=== PATIENT | male | born 1980 ===

== ENCOUNTER 2020-03-27 05:33 | Outpatient (RCR) | payer BC ==
[~2020-03-27] VITALS: Ht 170 cm; Wt 68.0 kg
== END 2020-03-27 15:13 | disposition home or self-care (01) ==
LOC: PREOP 05:33
PROVIDERS: ATTEND Surgery
DX: Z01.818 Encounter for other preprocedural examination (principal); Z11.59 Encounter for screening for other viral diseases
CPT/HCPCS: 87635

== ENCOUNTER 2020-03-30 10:42 | Day surgery (SDC) | payer BC ==
[~2020-03-30] VITALS: Ht 170 cm; Wt 68.0 kg
[2020-03-30] MEDS ORDERED: LACTATED RINGERS 1,000 ML IV ONE (10:53)
--- NOTE | 2020-03-30 10:57 | Progress Note-Pre Operative ---
Pre-Operative Progress Note H&P Reviewed The H&P was reviewed, patient examined and no changes noted. Date Seen by Provider: Mar 30, 2020 Time Seen by Provider: 10:55 Date H&P Reviewed: Mar 30, 2020 Time H&P Reviewed: 10:55 Pre-Operative Diagnosis: rectal bleed CHEN WISDOM MD Mar 30, 2020 10:57
[2020-03-30] MEDS ORDERED: PROPOFOL INJECTION 50 ML IV ONE (10:58)
[2020-03-30] MEDS ORDERED: MIDAZOLAM 2 MG/2 ML (VERSED) VIAL ONE (10:58)
--- NOTE | 2020-03-30 10:58 | Discharge Inst-Surgical ---
D/C Lap Instructions-ARTIS Follow Up Activity as tolerated High Fiber Diet 25g or more per day Avoid Alcohol, Caffeine, Spicy [place] and Acid foods. Drink 64 fluid oz or more of fluids per day. Symptoms to Report: Fever over 101 degree F, Nausea/Vomiting If any problems/questions: Contact your physician or go to Emergency Room CHEN WISDOM MD Mar 30, 2020 10:58
[2020-03-30] MEDS ORDERED: ACETAMINOPHEN 325 MG TABLET PO PRN (11:00)
[2020-03-30] MEDS ORDERED: HYDROcodone/APAP 5 MG/325 MG (LORTAB) TAB PO PRN (11:00)
[2020-03-30] MEDS ORDERED: morphine INJ 10 MG/ML 1ML (SYR OR VIAL) IVP PRN ×2 (11:00)
[2020-03-30] MEDS ORDERED: ONDANSETRON 4 MG/2 ML (SDV) Z0FRAN IVP PRN (11:00)
[2020-03-30] MEDS ORDERED: LACTATED RINGERS 1,000 ML IV STA (11:11)
[2020-03-30] MEDS ORDERED: LIDOCAINE JELLY 2% 6 ML SYRINGE MM PRN (11:15)
[2020-03-30 11:18] VITALS: BP 132/92
[2020-03-30] MEDS ORDERED: LIDOCAINE JELLY 2% 6 ML SYRINGE ONE (11:31)
--- OUTSIDE RECORDS SUMMARY | 2020-03-30 11:52 | XMS REPORT | Continuity of Care Document ---
Author Organization Unknown Address Unknown Phone Unavailable Allergies Active Description Code Type Severity Reaction Onset Reported/Identified Relationship to Patient Clinical Status Yes No Known Drug Allergies [id number] Drug Allergy Unknown N/A 03/23/2020 Medications There is no data. Problems Date Dx Coded Attending Type Code Diagnosis Diagnosed By 05/16/2011 REYNA CAPUTO MD 530.8 1 GERD 05/16/2011 REYNA CAPUTO MD 788.4 1 URINARY FREQUENCY 05/23/2011 REYNA CAPUTO MD 789.0 0 ABDOMINAL PAIN UNSPECIFIED SITE 06/23/2014 REYNA CAPUTO MD 525.9 UNSPECIFIED DISORDER OF THE TEETH AND SUPPORTING STRUCTURES Procedures There is no data. Results Test Result Range Coronavirus SARS-CoV-2 SO 2018 - 0 07:55 Coronavirus Ab [Units/volume] in Serum Negative Negative Encounters ACCT No. Visit Date/Time Discharge Status Pt. Type Provider Facility Loc./Unit Complaint [id number] 06/23/2014 14:46:00 06/23/2014 23:59: 59 CLS Outpatient REYNA CAPUTO MD [id number] 03/27/2020 05:33:00 020 15:13:00 DIS Outpatient CHEN WISDOM MD [facility] PREOP COLONOSCOPY [id number] 03/30/2020 13:00:00 P EN Preadmit CHEN WISDOM MD [facility] [place] ENDO ABD PAIN/BLOOD IN STOOLS
--- OUTSIDE RECORDS SUMMARY | 2020-03-30 11:52 | XMS REPORT ---
Author Author Aaron Sol Doctor Organization [facility] Address Unknown Phone Unavailable Care Team Providers Care Logistics Management Specialist Name Role Phone Migration, Doctor Unavailable Unavailable PROBLEMS Type Condition ICD9-CM Code [id number] Code Onset Dates Condition S tatus SNOMED Code Problem Unspecified disorder of the teeth and supporting structure s 525.9 Active [id number] ALLERGIES No Information ENCOUNTERS Encounter Location Date Diagnosis [place] [id number] [place] [phone] Jan, [place] [address] [address] [facility] [id number] [address] [place] [phone] Jan, [place] [address] [address] [facility] [id number] [address] [place] [phone] Jun, [place] [address] [address] [facility] [id number] [address] [place] [phone] Jun, IMMUNIZATIONS No Known Immunizations SOCIAL HISTORY Never Assessed REASON FOR VISIT [facility] [place] CARE VITAL SIGNS MEDICATIONS Medication Instructions Dosage Frequency Start Date End Date Duration S tatus Amoxicillin 500 mg 1 capsule by Oral route 3 times per day for 7 days Jun, Active RESULTS No Results PROCEDURES No Known procedures INSTRUCTIONS MEDICATIONS ADMINISTERED No Known Medications
--- OUTSIDE RECORDS SUMMARY | 2020-03-30 11:52 | XMS REPORT ---
Author Author Aaron Sol Doctor Organization [facility] Address Unknown Phone Unavailable Care Team Providers Care Manager International Name Role Phone Migration, Doctor Unavailable Unavailable PROBLEMS Type Condition ICD9-CM Code [id number] Code Onset Dates Condition S tatus SNOMED Code Problem Unspecified disorder of the teeth and supporting structure s 525.9 Active [id number] ALLERGIES No Information ENCOUNTERS Encounter Location Date Diagnosis [place] [address] [id number] [place] [phone] 14 Jan, 2015 [place] [address] [address] [place] [id number] [place] [phone] Jan, [place] [address] [address] [facility] [id number] [address] [place] [phone] Jun, [place] [address] [address] [facility] [id number] [address] [place] [phone] Jun, IMMUNIZATIONS No Known Immunizations SOCIAL HISTORY Never Assessed REASON FOR VISIT [facility] [place] PLAN OF CARE VITAL SIGNS MEDICATIONS Unknown Medications RESULTS No Results PROCEDURES No Known procedures INSTRUCTIONS MEDICATIONS ADMINISTERED No Known Medications
[2020-03-30 12:00] VITALS: BP 118/71
[2020-03-30 12:05] VITALS: BP 125/76
--- NOTE | 2020-03-30 12:07 | Anesthesia-General Post-Op ---
MAC Patient Condition Mental Status/LOC: Same as Preop Cardiovascular: Satisfactory Nausea/Vomiting: Absent Respiratory: Satisfactory Pain: Controlled Complications: Absent Post Op Complications Complications None Follow Up Care/Instructions Patient Instructions None needed. Anesthesiology Discharge Order Discharge Order Patient is doing well, no complaints, stable vital signs, no apparent adverse anesthesia problems. No complications reported per nursing. TAMELA CAMPA CRNA Mar 30, 2020 12:07
[2020-03-30 12:10] VITALS: BP 125/76
--- NOTE | 2020-03-30 12:10 | Progress Note-Post Operative ---
Post-Operative Progess Note Surgeon (s)/Compensation Consultant (s) Surgeon CHEN WISDOM MD Compensation Consultant: none Pre-Operative Diagnosis rectal bleed Post-Operative Diagnosis moderate chronic stage 2 ext and int hemorrhoids. Procedure & Operative Findings Date of Procedure 03/30/20 Procedure Performed/Findings colonoscopy Anesthesia Type mac Estimated Blood Loss Estimated blood loss (mL): minimal Specimens/Packing Specimens Removed none CHEN WISDOM MD Mar 30, 2020 12:10
[2020-03-30 12:38] VITALS: BP 126/76
--- NOTE | 2020-03-30 17:08 | OPERATIVE REPORT ---
DATE OF SERVICE: 03/30/2020 PREOPERATIVE DIAGNOSIS: Rectal bleed. POSTOPERATIVE DIAGNOSES: Chronic stage II external and internal hemorrhoids. Remainder of the rectum and colon were normal. There were no mucosal inflammatory changes and no polyps. PROCEDURE: Colonoscopy. SURGEON: Chen Wisdom MD. ANESTHESIA: Monitored anesthesia care. ESTIMATED BLOOD LOSS: Minimal. FINDINGS: Chronic stage II external and internal hemorrhoids. Remainder of the rectum and colon were normal. There were no mucosal inflammatory changes and no polyps. DISPOSITION: The patient tolerated the procedure well. INDICATIONS: The patient is a 40-year-old male referred over to us for rectal bleeding. He reports that he has never had this issue before; however, in the past several months, he has had intermittent episodes of bleeding usually after a bowel movement. He was seen at urgent care setting where an x-ray was performed, which did show a significant amount of what appeared to be well-formed stools throughout the colon, likely indicating some level of constipation. He does not speak Amharic; however, did have a family member as a horse trader. He does not report any significant crampy abdominal pain as well as no family history of colon cancer. DESCRIPTION OF PROCEDURE: The patient was brought to the endoscopy suite, laid in the left lateral decubitus position. After adequate IV pain and stated medications and monitored anesthesia care, a digital rectal examination was performed. Mild chronic stage II external and internal hemorrhoids were identified, which were not actively edematous nor inflamed and no bleeding. Normal sphincter tone was felt and there were no palpable masses. Prostate gland was palpable and appeared normal. The endoscope was then intubated and anus and rectum gently insufflated. The endoscope was then advanced through the valves of Leo of the rectum with no polyps or any neoplasms identified. Through the sigmoid colon, there were no diverticulosis identified. The endoscope was then advanced to the remainder of the descending, transverse and ascending colon to the cecum. These segments were normal. There were no polyps or any neoplasms identified as well as no mucosal inflammatory changes as well as no polyps or any neoplasms identified throughout the colon or rectum. The endoscope was then slowly withdrawn while taking a second look and suctioning of residual air with no additional findings. The patient tolerated the procedure well. We will recommend a high fiber diet with at least 30 grams of fiber daily as well as significant amounts of water to promote soft stools on a daily basis in a supplemental form. If he does have recurrent or worsening problems with rectal bleeding, we will have him follow up. Job ID: [id number] DocumentID: [id number] Dictated Date: 03/30/2020 12:10:35 Synthetic Cloth Binding Cutter Date: 03/30/2020 17:07:02 Dictated By: CHEN WISDOM MD
== END 2020-03-30 12:40 | disposition home or self-care (01) ==
LOC: ENDO 10:42
PROVIDERS: ATTEND Surgery
DX: K64.1 Second degree hemorrhoids (principal); F17.210 Nicotine dependence, cigarettes, uncomplicated

== ENCOUNTER 2020-07-28 01:00 | Inpatient (IN) | payer BC ==
[2020-07-28] VITALS (12 sets, daily range): BP systolic 111–138; BP diastolic 60–91
[~2020-07-28] VITALS: Ht 170.1 cm; Wt 7.5 kg
[2020-07-28] MEDS ORDERED: ASPIRIN 81 MG CHEW (CHILDREN'S ASA) PO ONE (01:15)
[2020-07-28] MEDS ORDERED: NITROGLYCERIN 0.4 MG SL TABS BTL 25'S SL PRN (01:15)
--- NOTE | 2020-07-28 01:28 | ED Abdominal Pain ---
General Chief Complaint: Abdominal/GI Problems Stated Complaint: CP,BACK & LEFT ARM PAIN Nursing Triage Note: PT REPORTS HE DRANK 2 MONSTERS at 1430 ET 5 BEERS OVER 1800. C/O SEVERE EPIGASTRIC PAIN STARTING AT 1900. DENIES NAUSEA. Sepsis Screen: No Definite Risk Source of Information: Patient (VIA [facility]), Eviscerator Exam Limitations: Language Barrier (PT DOES NOT SPEAK [place]) History of Present Illness Date Seen by Provider: Jul 28, 2020 Time Seen by Provider: 01:12 Initial Comments PT ARRIVES VIA POV FROM HOME, WITH [facility] C/O SEVERE EPIGASTRIC PAIN THAT RADIATES THROUGH TO BACK, SINCE 1900 TONIGHT PAIN IS MUCH WORSE WITH EATING STATES HE HAD 2 MONSTER DRINKS AT 1430, AND 5 BEERS AT 1800 ATE RAMEN NOODLE SOUP AT 1700, AND HAD FRIES AT 2300 NO NAUSEA/VOMITING/DIARRHEA NO CHEST PAIN NO SHORTNESS OF BREATH NO SWEATS NO COUGH, FEVER OR RECENT ILLNESS HAS HAD SIMILAR, BUT NOT THIS BAD, IN THE PAST. DID NOT SEEK CARE. PT DRINKS EVERY THURSDAY, THURSDAY, THURSDAY. PT SMOKES 1 PPD DENIES ANY MEDICAL PROBLEMS DOES NOT TAKE ANY REGULAR MEDICATIONS NO PCP, STATES THERE IS AN DR AT [facility], BUT HAS NOT BEEN THERE RECENTLY Allergies and Home Medications Allergies Coded Allergies: No Known Drug Allergies (Unverified , 03/23/20) Home Medications No Active Prescriptions or Reported Meds Patient Home Medication List Home Medication List Reviewed: Yes Review of Systems Review of Systems Constitutional: no symptoms reported; No chills, No diaphoresis, No dizziness, No fever EENTM: No Symptoms Reported Respiratory: No Symptoms Reported; Denies Cough, Denies Shortness of Air Cardiovascular: No Symptoms Reported; Denies Chest Pain Gastrointestinal: See HPI, Abdominal Pain; Denies Constipated, Denies Diarrhea, Denies Nausea, Denies Vomiting Genitourinary: No Symptoms Reported Musculoskeletal: see HPI, back pain Skin: no symptoms reported Psychiatric/Neurological: No Symptoms Reported Endocrine: No Symptoms Reported Hematologic/Lymphatic: No Symptoms Reported Past Recwvpy-Ileexy-Ejruhv Hx Past Med/Social Hx: Reviewed and Corrections made Patient Social History Alcohol Use: Regular Use (DRINKS THURSDAY, THURSDAY, SATURDAYS) Number of Drinks Today: AA Alcohol Beverage of Choice: Beer Recreational Drug Use: No Smoking Status: Current Everyday Smoker (1 PPD) Type Used: Cigarettes 2nd Hand Smoke Exposure: Yes Recent Foreign Travel: No Contact w/Someone Who Travel: No Recent Infectious Disease Expo: No Recent Hopitalizations: No Seasonal Allergies Seasonal Allergies: No Past Medical History Surgeries: Yes (COLONOSCOPY 03/30/20--HEMORRHOIDS) Respiratory: No Cardiac: No Neurological: No Reproductive Disorders: No Genitourinary: No Gastrointestinal: Yes (COLONOSCOPY 03/30/20--HEMORRHOIDS) Gastrointestinal Bleed, Hemorrhoids Musculoskeletal: Yes Chronic Back Pain Endocrine: No HEENT: No Loss of Vision: Denies Hearing Impairment: Denies Cancer: No Psychosocial: No Integumentary: No Blood Disorders: No Adverse Reaction/Blood Tranf: No (N/A) Physical Exam Vital Signs Vital Signs - First Documented 07/28/20 01:08 Temp 35.6 Pulse 96 Resp 20 B/P (MAP) 182/114 (136) O2 Delivery Room Air Capillary Refill : Less Than 3 Seconds Height/Weight/BMI Height: '" Weight: lbs. oz. kg; 25.00 BMI Method: General Appearance: WD/WN, no apparent distress Neck: normal inspection Respiratory: normal breath sounds, no respiratory distress, no accessory muscle use Cardiovascular: regular rate, rhythm, no murmur Gastrointestinal: normal bowel sounds, soft, no organomegaly, no pulsatile mass; No distended, No guarding, No rebound; tenderness (VERY TENDER IN EPIGASTRIC AREA, WELL RLQ TENDERNESS--PALPATION REPRODUCES PAIN ); No hernia, No mass Extremities: normal inspection, no pedal edema, normal capillary refill Back: normal inspection, no CVA tenderness, no vertebral tenderness Neurologic/Psychiatric: 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, no motor/sensory deficits, alert, normal mood/affect, oriented x 3 Skin: normal color (PT IS ), warm/dry; No rash Progress/Results/Core Measures Results/Orders Lab Results Laboratory Tests Test 07/28/20 01:15 07/28/20 01:52 Range/Units White Blood Count 14.1 H 4.3-11.0 10^3/uL Red Blood Count 5.30 4.30-5.52 10^6/uL Hemoglobin 16.0 13.3-17.7 g/dL Hematocrit 48 40-54 % Mean Corpuscular Volume 90 80-99 fL Mean Corpuscular Hemoglobin 30 25-34 pg Mean Corpuscular Hemoglobin Concent 34 32-36 g/dL Red Cell Distribution Width 12.3 10.0-14.5 % Platelet Count 264 130-400 10^3/uL Mean Platelet Volume 11.5 9.0-12.2 fL Immature Granulocyte % (Auto) 0 % Neutrophils (%) (Auto) 54 42-75 % Lymphocytes (%) (Auto) 32 12-44 % Monocytes (%) (Auto) 7 0-12 % Eosinophils (%) (Auto) 6 0-10 % Basophils (%) (Auto) 1 0-10 % Neutrophils # (Auto) 7.6 1.8-7.8 10^3/uL Lymphocytes # (Auto) 4.6 H 1.0-4.0 10^3/uL Monocytes # (Auto) 1.0 0.0-1.0 10^3/uL Eosinophils # (Auto) 0.8 H 0.0-0.3 10^3/uL Basophils # (Auto) 0.1 0.0-0.1 10^3/uL Immature Granulocyte # (Auto) 0.1 0.0-0.1 10^3/uL Prothrombin Time 14.2 12.2-14.7 SEC INR Comment 1.1 0.8-1.4 Activated Partial Thromboplast Time 31 24-35 SEC Sodium Level 142 135-145 MMOL/L Potassium Level 3.2 L 3.6-5.0 MMOL/L Chloride Level 105 98-107 MMOL/L Carbon Dioxide Level 24 21-32 MMOL/L Anion Gap 13 5-14 MMOL/L Blood Urea Nitrogen 8 7-18 MG/DL Creatinine 0.81 0.60-1.30 MG/DL Estimat Glomerular Filtration Rate > 60 BUN/Creatinine Ratio 10 Glucose Level 107 H 70-105 MG/DL Calcium Level 9.5 8.5-10.1 MG/DL Corrected Calcium 8.5-10.1 MG/DL Magnesium Level 2.0 1.6-2.4 MG/DL Total Bilirubin 0.6 0.1-1.0 MG/DL Aspartate Amino Transf (AST/SGOT) 34 5-34 U/L Alanine Aminotransferase (ALT/SGPT) 59 H 0-55 U/L Alkaline Phosphatase 61 40-136 U/L Total Creatine Kinase 87 30-200 U/L Creatine Kinase MB 2.0 <6.6 NG/ML Myoglobin 35.2 10.0-92.0 NG/ML Troponin I < 0.028 <0.028 NG/ML B-Type Natriuretic Peptide < 10.0 <100.0 PG/ML Total Protein 8.0 6.4-8.2 GM/DL Albumin 4.6 H 3.2-4.5 GM/DL Amylase Level 72 25-125 U/L Lipase 14 8-78 U/L Serum Alcohol 116 H <10 MG/DL Urine Color YELLOW Urine Clarity CLEAR Urine pH 6.0 5-9 Urine Specific [place] <=1.005 1.016-1.022 Urine Protein NEGATIVE NEGATIVE Urine Glucose (UA) NEGATIVE NEGATIVE Urine Ketones NEGATIVE NEGATIVE Urine Nitrite NEGATIVE NEGATIVE Urine Bilirubin NEGATIVE NEGATIVE Urine Urobilinogen 0.2 < = 1.0 MG/DL Urine Leukocyte Esterase NEGATIVE NEGATIVE Urine RBC (Auto) 1+ H NEGATIVE Urine RBC 2-5 H /HPF Urine WBC NONE /HPF Urine Squamous Epithelial Cells 0-2 /HPF Urine Crystals NONE /LPF Urine Bacteria NEGATIVE /HPF Urine Casts NONE /LPF Urine Mucus SMALL H /LPF Urine Culture Indicated NO Urine Opiates Screen NEGATIVE NEGATIVE Urine Oxycodone Screen NEGATIVE NEGATIVE Urine Methadone Screen NEGATIVE NEGATIVE Urine Propoxyphene Screen NEGATIVE NEGATIVE Urine Barbiturates Screen NEGATIVE NEGATIVE Ur Tricyclic Antidepressants Screen NEGATIVE NEGATIVE Urine Phencyclidine Screen NEGATIVE NEGATIVE Urine Amphetamines Screen NEGATIVE NEGATIVE Urine Methamphetamines Screen NEGATIVE NEGATIVE Urine Benzodiazepines Screen NEGATIVE NEGATIVE Urine Cocaine Screen NEGATIVE NEGATIVE Urine Cannabinoids Screen NEGATIVE NEGATIVE My Orders Orders - LINDA BROWNE DO Ed Iv/Invasive Line Start (07/28/20 01:11) Ekg Tracing (07/28/20:11) Monitor-Rhythm Ecg Trace Only (07/28/20 01:11) Chest 1 View, Ap/Pa Only (07/28/20 01:11) Alcohol (07/28/20 01:11) Amylase (07/28/20 01:11) BNP (07/28/20:11) Cbc With Automated Diff (07/28/20 01:11) Comprehensive Metabolic Panel (07/28/20 01:11) Creatine Kinase (07/28/20 01:11) Creatine Kinase Mb (07/28/20 01:11) Drug Screen Stat (Urine) (07/28/20 01:11) Lipase (10/17/20 01:11) Magnesium (07/28/20 01:11) Protime With Inr (07/28/20 01:11) Partial Thromboplastin Time (07/28/20 01:11) Ua Culture If Indicated (07/28/20 01:11) Myoglobin Serum (07/28/20 01:11) Troponin I (07/28/20 01:11) Nitroglycerin 0.4 Mg Btl 25's (Nitrostat (07/28/20 01:15) Aspirin Chewable Tablet (Baby Aspirin Ch (07/28/20 01:15) Pantoprazole Injection (Protonix Injecti (07/28/20 01:30) Ct Shilpi Chest/Noang Abd-Pelv W (07/28/20 02:03) Iohexol Injection (Omnipaque 350 Mg/Ml 1 (07/28/20 02:45) Ns (Ivpb) (Sodium Chloride 0.9% Ivpb Bag (07/28/20 02:45) Medications Given in ED Current Medications Medications Dose Ordered Sig/Eneida Route Start Time Stop Time Status Last Admin Dose Admin Iohexol 100 ml ONCE ONCE IV 07/28/20 02:45 07/28/20 02:47 DC 07/28/20 02:33 100 ML Pantoprazole 40 mg ONCE ONCE IV 07/28/20 01:30 07/28/20 01:31 DC 07/28/20 01:33 40 MG Sodium Chloride 80 ml ONCE ONCE IV 07/28/20 02:45 07/28/20 02:47 DC 07/28/20 02:33 80 ML Vital Signs/I&O 07/28/20 01:08 Temp 35.6 Pulse 96 Resp 20 B/P (MAP) 182/114 (136) O2 Delivery Room Air Blood Pressure Mean: 136 Progress Progress Note : Progress Note SYMPTOMS IMPROVED WITH MEDICATIONS UNEVENTFUL ER STAY Initial ECG Impression Date: Jul 28, 2020 Initial ECG Impression Time: 01:05 Initial ECG Rate: 93 Initial ECG Rhythm: Normal Sinus (REPOLARIZATION PATTERN) Initial ECG Comparisson: No Previous ECG Available Diagnostic Imaging Comments CXR--NO ACUTE PROCESS, PENDING RADIOLOGIST REVIEW CT ANGIOGRAM CHEST/ABDOMEN AND PELVIS--ACUTE APPENDICITIS, PER [facility] RADIOLOGIST VIA PHONE AT 0311 Reviewed: Reviewed by Me Departure Communication (Admissions) Family Conversation [id number]--ATTEMPTED TO CONTACT PT'S DAUGHTER, NO ANSWER, MESSAGE LEFT ON MACHINE 0315--SPOKE WITH DR. WISDOM, ACCEPTS PT FOR ADMIT. ORDERS NOTED FOR CIPRO/FLAGYL Impression Primary Impression: Appendicitis Additional Impressions: Alcohol intoxication POSSIBLE ALCOHOLIC GASTRITIS Disposition: ADMITTED INPATIENT Condition: Improved Admissions Decision to Admit Reason: Admit from ER (General) Decision to Admit/Date: Jul 28, 2020 Time/Decision to Admit Time: 03:15 Departure-Patient Inst. Referrals: NO,LOCAL PHYSICIAN (PCP/Family) Primary Care Physician Scripts No Active Prescriptions or Reported Meds LINDA BROWNE DO Jul 28, 2020 01:28
[2020-07-28 01:29] LABS: BASOPHILS # (AUTO) 0.1 10^3/uL (0.0-0.1); BASOPHILS % (AUTO) 1 % (0-10); EOSINOPHILS # (AUTO) 0.8 10^3/uL (0.0-0.3); EOSINOPHILS % (AUTO) 6 % (0-10); HEMATOCRIT 48 % (40-54); LYMPHOCYTES # (AUTO) 4.6 10^3/uL (1.0-4.0); LYMPHOCYTES % (AUTO) 32 % (12-44); MEAN CORPUSCULAR HEMOGLOBIN 30 pg (25-34); MEAN CORPUSCULAR HGB CONC 34 g/dL (32-36); MEAN CORPUSCULAR VOLUME 90 fL (80-99); MEAN PLATELET VOLUME 11.5 fL (9.0-12.2); MONOCYTES % (AUTO) 7 % (0-12); NEUTROPHILS # (AUTO) 7.6 10^3/uL (1.8-7.8); NEUTROPHILS % (AUTO) 54 % (42-75); PLATELET COUNT 264 10^3/uL (130-400); WHITE BLOOD COUNT 14.1 10^3/uL (4.3-11.0)
[2020-07-28] MEDS ORDERED: PANTOPRAZOLE 40 MG (PROTONIX) VIAL IV ONE (01:30)
[2020-07-28 01:41] LABS: ALBUMIN 4.6 GM/DL (3.2-4.5); CHLORIDE 105 MMOL/L (98-107); POTASSIUM 3.2 MMOL/L (3.6-5.0); SODIUM 142 MMOL/L (135-145)
[2020-07-28 01:42] LABS: AMYLASE 72 U/L (25-125); CALCIUM 9.5 MG/DL (8.5-10.1)
[2020-07-28 01:43] LABS: GLUCOSE 107 MG/DL (70-105); INR 1.1 (0.8-1.4); PROTHROMBIN TIME PATIENT 14.2 SEC (12.2-14.7)
[2020-07-28 01:44] LABS: CARBON DIOXIDE 24 MMOL/L (21-32)
[2020-07-28 01:45] LABS: BILIRUBIN,TOTAL 0.6 MG/DL (0.1-1.0)
[2020-07-28 01:47] LABS: ALKALINE PHOSPHATASE 61 U/L (40-136); CREATININE SERUM 0.81 MG/DL (0.60-1.30); GFR ESTIMATED > 60
[2020-07-28 01:48] LABS: BUN/CREATININE RATIO 10
[2020-07-28 01:50] LABS: ALANINE AMINOTRANSFERASE 59 U/L (0-55)
[2020-07-28 01:51] LABS: CREATINE KINASE 87 U/L (30-200); LIPASE 14 U/L (8-78)
[2020-07-28 02:00] LABS: BILIRUBIN,URINE NEGATIVE (NEGATIVE); CLARITY,URINE CLEAR; COLOR,URINE YELLOW; GLUCOSE, URINE (UA) NEGATIVE (NEGATIVE); KETONES,URINE NEGATIVE (NEGATIVE); LEUKOCYTE ESTERASE ,URINE NEGATIVE (NEGATIVE); NITRITE,URINE NEGATIVE (NEGATIVE); PROTEIN,URINE NEGATIVE (NEGATIVE)
[2020-07-28 02:18] LABS: AMPHETAMINE SCREEN, URINE NEGATIVE (NEGATIVE); BARBITURATE SCREEN URINE NEGATIVE (NEGATIVE); BENZODIAZEPINES SCREEN URINE NEGATIVE (NEGATIVE); CANNABINOID SCREEN, URINE NEGATIVE (NEGATIVE); COCAINE SCREEN URINE NEGATIVE (NEGATIVE); METHADONE STAT NEGATIVE (NEGATIVE); METHAMPHETAMINE SCREEN URINE S NEGATIVE (NEGATIVE); OPIATE SCREEN URINE NEGATIVE (NEGATIVE); OXYCODONE STAT NEGATIVE (NEGATIVE); PROPOXYPHENE STAT NEGATIVE (NEGATIVE); TRICYCLIC ANTIDEPRESSANTS SCRE NEGATIVE (NEGATIVE)
[2020-07-28 02:19] LABS: BACTERIA,URINE NEGATIVE /HPF; SQUAMOUS EPITHELIAL CELL,UR 0-2 /HPF
[2020-07-28] MEDS ORDERED: IOHEXOL 350 MG/ML 100 ML (OMNIPAQUE 350) VIAL IV ONE (02:45)
[2020-07-28] MEDS ORDERED: NS 100 ML (IVPB) BAG IV ONE (02:45)
[2020-07-28] MEDS ORDERED: metroNIDAZOLE 500MG/100ML IVPB 100 ML IV ONE (03:30)
[2020-07-28] MEDS ORDERED: fentaNYL INJECTION 100 MCG/2 ML AMP IVP ONE ×2 (03:30→15:00)
[2020-07-28] MEDS ORDERED: CIPROFLOXACIN IV 400MG/200ML 200 ML IV ONE (03:30)
--- NOTE | 2020-07-28 04:35 | NUR ---
SASHA HUFF admitted to room 408-1, with an admitting diagnosis of appendecitis, on 07/28/20 from er via , accompanied by ed staff. SASHA HUFF introduced to surroundings, call light, bed controls, phone, TV, temperature control, lights, meal times, smoking policy, visitor policy, side rail policy, bathrooms and showers. Patient Rights given to patient in the handbook. SASHA HUFF verbalizes understanding that [facility] is not responsible for the loss or damage to any personal effects or valuables that are kept in the patients posession during their hospitalization. SASHA HUFF verbalizes understanding of Interdisciplinary Patient Education. Patient and/or family were informed about the Rapid Response Team and its purpose.
[2020-07-28] MEDS ORDERED: D5 1/2 NS W/KCL 20 MEQ/L 1,000 ML IV ONE (04:37)
[2020-07-28] MEDS ORDERED: ONDANSETRON 4 MG/2 ML (SDV) Z0FRAN ONE ×2 (04:37→10:17)
[2020-07-28] MEDS ORDERED: 1/2 NS IV SOLUTION 1,000 ML IV PRN ×2 (04:41→04:51)
[2020-07-28] MEDS ORDERED: ONDANSETRON 4 MG (ZOFRAN) ORAL DISSOLVE TAB SL PRN ×2 (04:45→05:00)
[2020-07-28] MEDS ORDERED: ONDANSETRON 4 MG/2 ML (SDV) Z0FRAN IV PRN ×3 (04:45→05:00)
[2020-07-28] MEDS ORDERED: SENNA W/DOCUSATE (SENOKOT S) TABLET PO PRN ×2 (04:45→05:00)
[2020-07-28] MEDS ORDERED: LORazepam 1 MG (ATIVAN) TAB PO PRN ×2 (04:45→05:00)
[2020-07-28] MEDS ORDERED: LORazepam INJ 2 MG/ML (ATIVAN) VIAL IV PRN ×2 (04:45→05:00)
[2020-07-28] MEDS ORDERED: LORazepam INJ 2 MG/ML (ATIVAN) VIAL IM/IV PRN ×2 (04:45→05:00)
[2020-07-28] MEDS ORDERED: ANTACID SUSP 30 ML UDC (MYLANTA) PO PRN ×2 (04:45→05:00)
[2020-07-28] MEDS ORDERED: D5 1/2 NS 1000 ML IV SOLUTION 1,000 ML IV PRN ×2 (04:45→05:00)
[2020-07-28] MEDS ORDERED: THIAMINE INJECTION 100 MG, FOLIC ACID INJECTION 1 MG, MAGNESIUM SULFATE 2 GM, VITAMIN M... IV SCH ×15 (04:51→09:00)
[2020-07-28] MEDS ORDERED: fentaNYL INJECTION 100 MCG/2 ML AMP IV PRN (05:00)
[2020-07-28] MEDS: D5 1/2 NS W/KCL 20 MEQ/L 1,000 ML IV SCH ×2 (05:01→12:30)
--- NOTE | 2020-07-28 07:12 | Diagnostic Imaging Report ---
Exam: CT chest, abdomen, and pelvis with intravenous contrast. Date: July 28, 2020. Indication: 40-year-old male, epigastric, chest, and back pain. Comparison: Chest radiograph July 28, 2020. Technique: Axial CT images of the chest, abdomen, and pelvis were obtained following the intravenous administration of contrast. Coronal and sagittal reformats were obtained and provided. Findings: There is no identified pulmonary nodule. There is no lung mass. There is no identified focal airspace consolidation. There is no identified pneumothorax. There is no pleural effusion. The central airways are patent. There is no identified pulmonary embolus. The main pulmonary artery is normal in caliber. The heart is not enlarged. There is no pericardial effusion. There is no identified abnormally enlarged mediastinal, hilar, or axillary lymph node which meets CT size criteria for adenopathy. The liver is normal in size and contour. There is no identified liver lesion. The main, right, and left portal veins are patent. The gallbladder is unremarkable. There is no intrahepatic or extrahepatic bile duct dilation. The main pancreatic duct is not abnormally dilated. Unremarkable appearance of the pancreatic parenchyma. The spleen is not enlarged. The adrenal glands are unremarkable. Unremarkable appearance of the renal parenchyma. The urinary collecting systems are not distended. There is no identified renal or ureteral stone. The urinary bladder is unremarkable. The intestinal tract is not distended. The appendix is best seen on coronal image 33 and is abnormally dilated at 10 mm in diameter. There is very mild adjacent inflammatory stranding. There are no secondary findings to specifically suggest acute appendicitis. There is no free intraperitoneal air. There is a small fat-containing umbilical hernia. There is no drainable fluid collection. There is no free pelvic fluid. There is no identified abnormally enlarged lymph node in the abdomen or pelvis which meets CT size criteria for adenopathy. There is no identified acute bony abnormality. Impression: 1. Findings suspicious for early acute appendicitis without evidence of perforation or abscess. 2. No identified acute abnormality in the chest. Dictated by: Dictated on workstation # [id number]
--- NOTE | 2020-07-28 07:25 | Diagnostic Imaging Report ---
EXAMINATION: Chest radiograph, portable AP view. DATE: 07/28/2020 1:32 AM hours. INDICATION: 40-year-old male, chest pain. COMPARISON: None. FINDINGS: Heart size and mediastinal contours are unremarkable. There is no identified pneumothorax. There is no large pleural effusion. There is no identified focal airspace consolidation. IMPRESSION: 1. No identified acute cardiopulmonary abnormality. Dictated by: Dictated on workstation # [id number]
--- NOTE | 2020-07-28 07:44 | Progress Note-Pre Operative ---
Pre-Operative Progress Note H&P Reviewed The H&P was reviewed, patient examined and no changes noted. Date Seen by Provider: Jul 28, 2020 Time Seen by Provider: 07:30 Date H&P Reviewed: Jul 28, 2020 Time H&P Reviewed: 07:30 Pre-Operative Diagnosis: acute appendicitis CHEN WISDOM MD Jul 28, 2020 07:43
--- NOTE | 2020-07-28 08:23 | HISTORY AND PHYSICAL ---
DATE OF SERVICE: HISTORY OF PRESENT ILLNESS: The patient is a 40-year-old male who presented to [facility] Emergency Department early this morning with abdominal pain. He states that the previous day, he did drink 2 large energy drinks and then drink several beers and developed initial epigastric pain; however, then developed more localized pain in the right lower abdominal quadrant. He does not report any fever nor chills as well as no nausea, no vomiting. A CT scan was performed, which did show inflammation of the appendix consistent with an appendicitis. PAST MEDICAL HISTORY: None. PAST SURGICAL HISTORY: None. ALLERGIES: No known drug allergies. MEDICATIONS: None. SOCIAL HISTORY: Drinks beer on , Thursday and Thursday. Positive for smoke 20 pack years. FAMILY HISTORY: Noncontributory. VITAL SIGNS: Temperature 36.3, blood pressure 138/72, pulse 87, respirations 16, pulse ox 95% on room air. REVIEW OF SYSTEMS: Well-nourished male, currently in no acute distress. He is Northern Irish speaking; however, does understand some Djib[place]ian. He is not experiencing any shortness of breath or difficulty breathing. No chest pain, palpitations, diaphoresis. No nausea, vomiting with pain in the epigastric region as well as the right lower abdominal quadrant. No hematemesis, no coffee ground emesis. No diarrhea, constipation, no red blood per rectum, no dark tarry stools. No fever, chills, no recent inadvertent weight loss. All other review of systems negative. PHYSICAL EXAMINATION: CHEST: Clear. Good breath sounds bilaterally. HEART: Regular, no murmurs. EXTREMITIES: No lower extremity edema, negative Homans sign. HEENT: No scleral icterus. No cervical lymphadenopathy. ABDOMEN: Soft, nondistended. There is pain in the right lower abdominal quadrant at McBurney's point, voluntary guarding, no rebound. SKIN: Warm, dry. LABORATORY DATA: WBC 14.1, hemoglobin 16.0, hematocrit 43, platelets 264. BUN 8, creatinine 0.81. ASSESSMENT AND PLAN: A 40-year-old male with acute appendicitis. The natural history of this disease process was explained to the patient and he is in understanding and would like to proceed with laparoscopic appendectomy, which we will proceed with on this admission. Job ID: [id number] DocumentID: [id number] Dictated Date: 07/28/2020 07:51:52 Litigation Manager Date: 07/28/2020 08:22:56 Dictated By: CHEN WISDOM MD
[2020-07-28] MEDS ORDERED: BUP/EPI 0.5% 1:200,000 (SENSORCAINE) 30 ML VIAL ONE (09:53)
[2020-07-28] MEDS ORDERED: fentaNYL INJECTION 100 MCG/2 ML AMP ONE ×2 (10:10→14:02)
[2020-07-28] MEDS ORDERED: MIDAZOLAM 2 MG/2 ML (VERSED) VIAL ONE (10:10)
[2020-07-28] MEDS ORDERED: proPOfol 200 MG/20 ML (DIPRIVAN) VIAL IV ONE (10:16)
[2020-07-28] MEDS ORDERED: ROCURONIUM 10 MG/ML 5 ML SYRINGE IV ONE (10:17)
[2020-07-28] MEDS ORDERED: GLYCOPYRROLATE 0.2 MG/ML (ROBINUL) 2 ML VIAL ONE ×2 (10:17→14:34)
[2020-07-28] MEDS ORDERED: NEOSTIGMINE 3 MG/3 ML VIAL ONE ×2 (10:17→14:34)
[2020-07-28] MEDS ORDERED: LIDOCAINE PF 2% 5 ML (XYLOCAINE) VIAL ONE (10:17)
[2020-07-28] MEDS ORDERED: MEPERIDINE (DEMEROL) INJ 50 MG/ML ONE (10:51)
[2020-07-28] MEDS ORDERED: morphine INJ 10 MG/ML 1ML (SYR OR VIAL) ONE (10:51)
[2020-07-28] MEDS ORDERED: HYDR-4227 PO (12:16)
--- NOTE | 2020-07-28 12:16 | Discharge Inst-Surgical ---
D/C Lap Instructions-KIDO Reconcile Patient Problems Problems Reviewed?: Yes New, Converted, or Re-Newed RX: RX on Chart Follow Up Appt in 2 weeks Activity as tolerated No driving for 24 hours No driving while on pain medications Incentive Spirometry use every 2 hours while awake Regular Diet Symptoms to Report: Fever over 101 degree F, Nausea/Vomiting Infection Signs and Symptoms to report: Increased redness, Foul odor of wound, Increased drainage Bathing instructions: May shower Operative Area Clean/Dry; Keep incision clean/dry If any problems/questions: Contact your physician or go to Emergency Room ANTONIO IRAHETA APRN Jul 28, 2020 12:16
[2020-07-28] MEDS: LACTATED RINGERS 1,000 ML IV PRN ×2 (13:39→14:13)
[2020-07-28] MEDS ORDERED: SEVOFLURANE (ULTANE) 15 ML INHAL SOLN ONE ×2 (13:39→16:52)
--- NOTE | 2020-07-28 14:26 | Progress Note-Post Operative ---
Post-Operative Progess Note Surgeon (s)/Aircraft Communicator (s) Surgeon CHEN WISDOM MD Aircraft Communicator: karolina coyle APRN Pre-Operative Diagnosis acute appendicitis Post-Operative Diagnosis same Procedure & Operative Findings Date of Procedure 07/28/20 Procedure Performed/Findings laparoscopic appendectomy Anesthesia Type get Estimated Blood Loss Estimated blood loss (mL): minimal Specimens/Packing Specimens Removed appendix CHEN WISDOM MD Jul 28, 2020 14:26
[2020-07-28] MEDS ORDERED: LACTATED RINGERS 1,000 ML IV PRN (14:47)
--- NOTE | 2020-07-28 14:50 | NUR ---
Patient returned from his lap appy accompanied by Tika GUO. Patient resting with eyes closed. LR currently infusing. Patient stable and not complaining of any pain at this time.
[2020-07-28] MEDS ORDERED: ONDANSETRON 4 MG/2 ML (SDV) Z0FRAN IVP PRN (15:00)
[2020-07-28] MEDS ORDERED: MEPERIDINE (DEMEROL) INJ 50 MG/ML IVP ONE (15:00)
[2020-07-28] MEDS ORDERED: morphine INJ 10 MG/ML 1ML (SYR OR VIAL) IVP ONE (15:00)
[2020-07-28] MEDS ORDERED: metroNIDAZOLE 500 MG/100 ML IVPB (PRE-MIX) IV SCH (16:00)
[2020-07-28] MEDS ORDERED: CIPROFLOXACIN 400 MG/D5W 200 ML (PRE-MIX) IV SCH (16:00)
--- NOTE | 2020-07-28 17:31 | Anesthesia-General Post-Op ---
General Patient Condition Mental Status/LOC: Same as Preop Cardiovascular: Satisfactory Nausea/Vomiting: Absent Respiratory: Satisfactory Pain: Controlled Complications: Absent Post Op Complications Complications None Follow Up Care/Instructions Patient Instructions None needed. Anesthesia/Patient Condition Patient Condition Patient is doing well, no complaints, stable vital signs, no apparent adverse anesthesia problems. No complications reported per nursing. MYRIAM MCKEON CRNA Jul 28, 2020 17:31
--- NOTE | 2020-07-28 17:53 | NUR ---
SASHA HUFF demonstrates understanding of discharge instructions and accurately returns instructions upon questioning. Copy of Post-Discharge Instructions and Medication Discharge Instructions given to patient. SASHA HUFF is able to manage continuing needs after discharge. Patients belongings returned to patient. Skin dry and intact; no breakdown noted. Patient discharged from [facility]- on 07/28/20 at 1750. SASHA HUFF left floor via wheelchair, accompanied by CRESCENCIO Godoy.
--- NOTE | 2020-07-28 20:46 | OPERATIVE REPORT ---
DATE OF SERVICE: 07/28/2020 PREOPERATIVE DIAGNOSIS: Acute appendicitis. POSTOPERATIVE DIAGNOSIS: Acute appendicitis. No perforation. PROCEDURE: Laparoscopic appendectomy. SURGEON: Chen Wisdom MD. ANESTHESIA: General endotracheal. ESTIMATED BLOOD LOSS: Minimal. FINDINGS: Acute appendicitis. No perforation. DISPOSITION: The patient tolerated the procedure well. INDICATIONS: The patient is a 40-year-old male who presented to the Emergency Department early this morning with pain in the epigastric region as well as the right lower abdominal quadrant. He states that this initially started in the epigastric region; however, became worse in the right lower abdominal quadrant. He states that this started approximately one day ago. He does drink energy drinks as well as did drink several beers. He states that the pain worsened and he decided to go to the Emergency Department. He does not report any fever nor chills as well as no recent inadvertent weight loss. He does not report having these symptoms before in the past; however, does have a history of gastroesophageal reflux disease. A CT scan was performed, which did show an edematous appendix consistent with acute appendicitis. DESCRIPTION OF PROCEDURE: The patient was brought to the operating room, laid supine on the table. After general endotracheal intubation, the abdomen was prepped and draped in standard surgical fashion. A 0.5% Marcaine with epinephrine was used to anesthetize the overlying skin left upper abdominal quadrant and a transverse skin incision made using a 15 blade. An 0 silk suture was applied to the medial aspect of the incision for retraction and a Veress needle inserted with a low opening pressure of 0 mmHg and the abdomen was then insufflated to 15 mmHg pressure. The Veress needle removed and a 5 mm XL trocar placed followed by a 5 mm 45-degree angle laparoscope visualizing the peritoneal cavity. A 4-quadrant abdominal exploration was performed. What was visualized of the liver, gallbladder, omentum appeared normal. There was a retrocecal appendix, which was edematous; however, no perforation. Under direct visualization, we then proceeded to place a supraumbilical 10 mm port after the skin and peritoneal lining were anesthetized using 0.5% Marcaine with epinephrine and a transverse skin incision made using a 15 blade. In a similar manner, a suprapubic 5 mm port was placed. The patient was then placed in Trendelenburg position. The gallbladder was retracted towards the anterior abdominal wall and the white lines of Toldt were taken down using electrocautery on hook instrument. The appendix and mesoappendix were then stapled and transected at the cecal base using a JOSEFINA 45 mm stapler with 2.5 mm thickness load. Good hemostasis was observed. The appendix was removed through the 10 mm port site using an EndoCatch bag. The fascia and peritoneum to the 10 mm port was then closed under direct visualization using a Chase-Tano device and 0 Vicryl suture. The abdomen was then desufflated and remaining ports removed. All skin incisions were closed using 4-0 Monocryl running subcuticular sutures. Wounds were then cleaned and covered with Dermabond. The patient tolerated the procedure well. We will start IV normal pain medication as well as a clear liquid diet. Once he is tolerating clears, has good pain control with oral pain medications, ambulating well, we will discharge him home. He will be instructed to do no heavy lifting or exertion for the next two weeks. Job ID: [id number] DocumentID: [id number] Dictated Date: 07/28/2020 14:26:42 Sewer Connector Date: 07/28/2020 20:45:11 Dictated By: CHEN WISDOM MD
[2020-07-28] MEDS ORDERED: PANTOPRAZOLE 40 MG (PROTONIX) VIAL IV SCH (21:00)
== END 2020-07-28 17:50 | disposition home or self-care (01) | DRG 343 ==
LOC: EDUNIT# 01:00 → ER 01:03 → 4TH 03:15
PROVIDERS: ADMIT Surgery; ATTEND Surgery
PROC: 0DTJ4ZZ Resection of Appendix, Percutaneous Endoscopic Approach (ICD-10-PCS; principal; 2020-07-28 13:39)
DX: K35.80 Unspecified acute appendicitis (principal); K21.9 Gastro-esophageal reflux disease without esophagitis; F17.210 Nicotine dependence, cigarettes, uncomplicated; F10.129 Alcohol abuse with intoxication, unspecified; K29.20 Alcoholic gastritis without bleeding
CPT/HCPCS: 36415; 71045; 71275; 74177; 80053; 80306; 80320; 81000; 82150; 82550; 82553; 83690; 83735; 83874; 83880; 84484; 85025; 85610; 85730; 87081; 87635; 93041

== ENCOUNTER → 2021-07-26 | Outpatient (CLI) | payer OTHER ==
[~2021-07-26] MED LIST: HYDR-4227 PO
--- NOTE | 2021-07-26 13:24 | Diagnostic Imaging Report ---
EXAMINATION: Right elbow radiographs, 3 views. COMPARISON: None. HISTORY: 41-year-old male, right elbow pain. FINDINGS: There is no acute fracture. There is no elbow joint dislocation. There is no elbow joint effusion. Joint spaces are well preserved. There is no radiopaque foreign body. There is no bone lesion. IMPRESSION: Unremarkable radiographs of the right elbow. Dictated by: Dictated on workstation # [id number]
--- NOTE | 2021-07-26 15:44 | Diagnostic Imaging Report ---
PROCEDURE: CT abdomen and pelvis without contrast. TECHNIQUE: Multiple contiguous axial images were obtained through the abdomen and pelvis without the use of intravenous contrast. Auto Exposure Controls were utilized during the CT exam to meet ALARA standards for radiation dose reduction. INDICATION: Left upper quadrant pain for 3 months. COMPARISON: Correlation is made with prior CT from 07/28/2020. The lung bases are clear. Liver and gallbladder are unremarkable. There is no biliary ductal dilatation. The pancreas and spleen are unremarkable. No adrenal mass is detected. No definite renal calculi or hydronephrosis is identified. No ureteral or bladder calculi are detected. Aorta is nonaneurysmal. The bowel loops are normal caliber. There is no obstruction. No free fluid or fluid collection is seen. Prostate is unremarkable. No abdominal or pelvic lymphadenopathy is detected. Bony structures are unremarkable. IMPRESSION: Unremarkable noncontrast CT of the abdomen and pelvis. No acute feature is detected. Dictated by: Dictated on workstation # [id number]
== END ==
LOC: RAD 12:45
PROVIDERS: ATTEND Nurse Practitioner Family
DX: M25.521 Pain in right elbow (principal); K92.1 Melena; N39.0 Urinary tract infection, site not specified
CPT/HCPCS: 73080; 74176

== ENCOUNTER 2021-12-13 12:25 | Day surgery (SDC) | payer OTHER ==
[~2021-12-13] VITALS: Ht 170.2 cm; Wt 80.7 kg
[~2021-12-13 12:25] MED LIST changes: +PANT40TA52 PO; +PRAM15FO3 TP; +SUCR1TAB PO
[2021-12-13] MEDS ORDERED: LACTATED RINGERS 1,000 ML IV ONE (12:29)
[2021-12-13] MEDS ORDERED: LACTATED RINGERS 1,000 ML IV STA (12:36)
[2021-12-13 12:45] VITALS: BP 137/96
[2021-12-13] MEDS ORDERED: HURRICAINE EXT TUBE (BENZOCAINE) XX PRN (12:45)
--- NOTE | 2021-12-13 13:52 | Progress Note-Pre Operative ---
Pre-Operative Progress Note H&P Reviewed The H&P was reviewed, patient examined and no changes noted. Date Seen by Provider: Dec 13, 2021 Time Seen by Provider: 13:52 Date H&P Reviewed: Dec 13, 2021 Time H&P Reviewed: 13:52 Pre-Operative Diagnosis: gerd, melena ANGÉLICA PATINO DO Dec 13, 2021 13:52
[2021-12-13] MEDS ORDERED: MIDAZOLAM 2 MG/2 ML (VERSED) VIAL ONE (14:18)
[2021-12-13] MEDS ORDERED: PROPOFOL INJECTION 50 ML IV ONE (14:18)
[2021-12-13 14:55] VITALS: BP 131/84
[2021-12-13 15:00] VITALS: BP 129/81
[2021-12-13 15:02] VITALS: BP 129/81
--- NOTE | 2021-12-13 15:04 | Discharge Inst-Simple/Standard ---
Discharge Inst-Standard Patient Instructions/Follow Up Plan of Care/Instructions/FU: 2 weeks Heath Activity as Tolerated: Yes Discharge Diet: Regular Diet ANGÉLICA PATINO DO Dec 13, 2021 15:04
--- NOTE | 2021-12-13 15:06 | Progress Note-Post Operative ---
Post-Operative Progess Note Surgeon (s)/Database Programmer (s) Surgeon ANGÉLICA PATINO DO Database Programmer: na Pre-Operative Diagnosis gerd, melena Post-Operative Diagnosis slight gastritis, colon polyp x 2 Procedure & Operative Findings Date of Procedure 12/13/21 Procedure Performed/Findings egd c biopsy antrum, colonoscopy c cold bx polypectomy and hot bx polypectomy Anesthesia Type per [facility] Estimated Blood Loss Estimated blood loss (mL): none Specimens/Packing Specimens Removed antrum, cecal polyp, descending colon polyp ANGÉLICA PATINO DO Dec 13, 2021 15:06
[2021-12-13 15:35] VITALS: BP 124/94
--- NOTE | 2021-12-14 00:52 | OPERATIVE REPORT ---
DATE OF SERVICE: 12/13/2021 PREOPERATIVE DIAGNOSES: Gastroesophageal reflux disease, melena. POSTOPERATIVE DIAGNOSES: Slight gastritis, colon polyp x2. PROCEDURE: Esophagogastroduodenoscopy with biopsy of the antrum, colonoscopy with cold biopsy polypectomy of cecal polyp and hot biopsy polypectomy of descending colon polyp. SURGEON: Angélica Joe DO ANESTHESIA: Per MDA. ESTIMATED BLOOD LOSS: None. COMPLICATIONS: None. INDICATIONS: The patient is a 41-year-old male with melena and GERD symptoms. He understands risks and benefits of procedure and wishes to proceed. Consent was signed in the chart. DESCRIPTION OF PROCEDURE: The patient was taken to the endoscopy suite, placed in left lateral recumbent position. Timeout was performed. Scope was inserted in mouth, down the esophagus, stomach and into the duodenum without difficulty. There were no polyps, masses or ulcerations within the duodenum. Scope was slowly retracted back to stomach where it was further insufflated. Slight gastritis appearance. Biopsy of the antrum was obtained. Scope was retroflexed noting no other pathology. Scope was returned to its normal position, slowly withdrawn to distal esophagus, which had normal appearance. No polyps, masses or ulcerations. Scope was slowly retracted back until completely removed, noting no other pathology. Digital rectal exam was performed. No palpable polyps, masses or ulcerations. Scope was inserted in the rectum and advanced all the way to cecum with minimal difficulty. Prep was adequate. Scope was then slowly retracted back in the cecum, a small polyp was present, which cold biopsy polypectomy was performed. Scope was then continuously retracted back. No polyps, masses or ulcerations within the ascending, transverse colon. In the descending colon, small polyp was present, which hot biopsy polypectomy was performed. Scope was then continuously retracted back. No polyps, masses or ulcerations within the sigmoid and rectum. In the rectum, the scope was retroflexed noting no other pathology. Scope was returned to its normal position, slowly withdrawn until completely removed. The patient tolerated the procedure well without any complications, taken to recovery room in stable condition. RECOMMENDATIONS: The patient will need repeat colonoscopy in 5 years. Any issues before that be seen at that time. If continues to have melena, we will consider capsule endoscopy for evaluation of the small bowel. The patient to continue on current medications. Job ID: [id number] DocumentID: [id number] Dictated Date: 12/13/2021 15:09:19 Sole Leather Cutting Machine Operator Date: 12/14/2021 00:51:15 Dictated By: ANGÉLICA JOE DO
== END 2021-12-13 15:45 | disposition home or self-care (01) ==
LOC: ENDO 12:25
PROVIDERS: ATTEND Surgery
DX: K63.5 Polyp of colon (principal); K29.71 Gastritis, unspecified, with bleeding; K21.9 Gastro-esophageal reflux disease without esophagitis; F17.210 Nicotine dependence, cigarettes, uncomplicated

== ENCOUNTER 2022-02-17 10:34 | Emergency (ER) | payer OTHER ==
[~2022-02-17] VITALS: Ht 168 cm; Wt 77.0 kg
[2022-02-17] MEDS ORDERED: IOHEXOL 350 MG/ML 100 ML (OMNIPAQUE 350) VIAL IV ONE (11:00)
[2022-02-17] MEDS ORDERED: CATHETER FLUSH 10 ML SYR IV PRN (11:00)
[2022-02-17] MEDS ORDERED: HOLD METFORMIN - RECEIVED CONTRAST 20 ML VIAL IV SCH (11:00)
[2022-02-17] MEDS ORDERED: NS 100 ML (IVPB) BAG IV ONE (11:00)
--- NOTE | 2022-02-17 11:00 | ED Abdominal Pain ---
General Chief Complaint: Rect Problems Stated Complaint: ABD PAIN, RECTAL BLEEDIND Nursing Triage Note: PT STATES RECTAL BLEEDING THAT STARTED THIS A.M. Source of Information: Patient Exam Limitations: No Limitations History of Present Illness Date Seen by Provider: February 17, 2022 Time Seen by Provider: 10:56 Initial Comments To Er by radha who translates with c/o 1 episode of BRBPR this morning associated with left sided abdominal pain. No fevers, no vomiting. Had EGD/Colonoscopy on 12/13/21 for melena. Had a cecal polypectomy showing tubular adenoma and a polypectomy of the descending colon showing nodular lymphoid hyperplasia. He is on carafate and omeprazole. Smokes 5-6 cigs/day, social etoh use on weekends. Timing/Duration: 4-6 Hours Severity/Quality: Moderate Radiation: No Radiation Activities at Onset: None Modifying Factors: Improves With Analgesics Allergies and Home Medications Allergies Coded Allergies: No Known Drug Allergies (Unverified , 03/23/20) Patient Home Medication List Home Medication List Reviewed: Yes Pantoprazole Sodium (Pantoprazole Sodium) 40 Mg Tablet.dr, 40 MG PO DAILY, (Reported) Entered as Reported by: ROLO SCHUMACHER on 12/06/21 1239 Pramoxine HCl (Proctofoam) 15 Gm Foam, 15 GM TP TID, (Reported) Entered as Reported by: ROLO SCHUMACHER on 12/06/21 1239 Sucralfate (Sucralfate) 1 Gm Tablet, 1 GM PO QID, (Reported) Entered as Reported by: ROLO SCHUMACHER on 12/06/21 1239 Review of Systems Review of Systems Constitutional: see HPI EENTM: No Symptoms Reported Respiratory: No Symptoms Reported Cardiovascular: No Symptoms Reported Gastrointestinal: See HPI Genitourinary: No Symptoms Reported Musculoskeletal: no symptoms reported Skin: no symptoms reported Psychiatric/Neurological: No Symptoms Reported Endocrine: No Symptoms Reported Hematologic/Lymphatic: No Symptoms Reported Past Pesdlxd-Vivpjk-Snxkba Hx Patient Social History Tobacco Use?: Yes Tobacco type used: Cigarettes Smoking Status: Current Everyday Smoker Substance use?: No Alcohol Use?: Yes Alcohol type: Beer Alcohol Frequency: Once in a while Immunizations Up To Date First/Initial COVID19 Vaccinat: NO Second COVID19 Vaccination Srinivas: NO Third COVID19 Vaccination Date: NO Seasonal Allergies Seasonal Allergies: No Past Medical History Surgery/Hospitalization HX: EGD, COLONOSCOPY, APPY Surgeries: Yes (COLONOSCOPY 03/30/20--HEMORRHOIDS) Respiratory: No Currently Using CPAP: No Currently Using BIPAP: No Cardiac: No Neurological: No Reproductive Disorders: No Sexually Transmitted Disease: No HIV/AIDS: No Genitourinary: No Gastrointestinal: Yes (COLONOSCOPY 03/30/20--HEMORRHOIDS) Gastrointestinal Bleed, Hemorrhoids Musculoskeletal: Yes Chronic Back Pain Endocrine: No HEENT: No Loss of Vision: Denies Hearing Impairment: Denies Cancer: No Psychosocial: No Integumentary: No Blood Disorders: No Adverse Reaction/Blood Tranf: No (N/A) Physical Exam Vital Signs Vital Signs - First Documented 02/17/22 10:50 Temp 36.4 Pulse 84 Resp 18 B/P (MAP) 135/97 (110) Pulse Ox 97 O2 Delivery Room Air Capillary Refill : Less Than 3 Seconds Height/Weight/BMI Height: '" Weight: lbs. oz. kg; 27.00 BMI Method: General Appearance: WD/WN, no apparent distress HEENT: PERRL/EOMI, normal ENT inspection Neck: non-tender, full range of motion Respiratory: normal breath sounds, no respiratory distress, no accessory muscle use Cardiovascular: regular rate, rhythm, no murmur Gastrointestinal: normal bowel sounds, soft, tenderness (minimal llq tenderness) Extremities: normal range of motion, non-tender Neurologic/Psychiatric: alert, normal mood/affect, oriented x 3 Skin: normal color, warm/dry Progress/Results/Core Measures Results/Orders Lab Results Laboratory Tests Test 02/17/22 10:55 Range/Units White Blood Count 8.9 4.3-11.0 10^3/uL Red Blood Count 5.57 H 4.30-5.52 10^6/uL Hemoglobin 16.8 13.3-17.7 g/dL Hematocrit 50 40-54 % Mean Corpuscular Volume 90 80-99 fL Mean Corpuscular Hemoglobin 30 25-34 pg Mean Corpuscular Hemoglobin Concent 34 32-36 g/dL Red Cell Distribution Width 12.1 10.0-14.5 % Platelet Count 254 130-400 10^3/uL Mean Platelet Volume 11.9 9.0-12.2 fL Immature Granulocyte % (Auto) 0 % Neutrophils (%) (Auto) 54 42-75 % Lymphocytes (%) (Auto) 29 12-44 % Monocytes (%) (Auto) 9 0-12 % Eosinophils (%) (Auto) 7 0-10 % Basophils (%) (Auto) 1 0-10 % Neutrophils # (Auto) 4.8 1.8-7.8 10^3/uL Lymphocytes # (Auto) 2.6 1.0-4.0 10^3/uL Monocytes # (Auto) 0.8 0.0-1.0 10^3/uL Eosinophils # (Auto) 0.6 H 0.0-0.3 10^3/uL Basophils # (Auto) 0.1 0.0-0.1 10^3/uL Immature Granulocyte # (Auto) 0.0 0.0-0.1 10^3/uL Sodium Level 139 135-145 MMOL/L Potassium Level 4.0 3.6-5.0 MMOL/L Chloride Level 103 98-107 MMOL/L Carbon Dioxide Level 28 21-32 MMOL/L Anion Gap 8 5-14 MMOL/L Blood Urea Nitrogen 9 7-18 MG/DL Creatinine 0.89 0.60-1.30 MG/DL Estimat Glomerular Filtration Rate 110 BUN/Creatinine Ratio 10 Glucose Level 129 H 70-105 MG/DL Calcium Level 9.6 8.5-10.1 MG/DL Corrected Calcium 9.2 8.5-10.1 MG/DL Total Bilirubin 0.8 0.1-1.0 MG/DL Aspartate Amino Transf (AST/SGOT) 27 5-34 U/L Alanine Aminotransferase (ALT/SGPT) 51 0-55 U/L Alkaline Phosphatase 61 40-136 U/L Total Protein 7.8 6.4-8.2 GM/DL Albumin 4.5 3.2-4.5 GM/DL My Orders Orders - DERRICK HERNANDEZ APRN Cbc With Automated Diff (02/17/22 10:51) Comprehensive Metabolic Panel (02/17/22 10:51) Ed Iv/Invasive Line Start (02/17/22 10:51) Ct Abdomen/Pelvis W (02/17/22 10:51) Iohexol Injection (Omnipaque 350 Mg/Ml 1 (02/17/22 11:00) Received Contrast (Hold Metformin- Contr (02/17/22 11:00) Sodium Chloride Flush (Catheter Flush Sy (02/17/22 11:00) Ns (Ivpb) (Sodium Chloride 0.9% Ivpb Bag (02/17/22 11:00) Medications Given in ED Current Medications Medications Dose Ordered Sig/Eneida Route Start Time Stop Time Status Last Admin Dose Admin Iohexol 100 ml ONCE ONCE IV 02/17/22 11:00 02/17/22 11:01 DC 02/17/22 11:09 100 ML Sodium Chloride 10 ml NEEDED PRN IV 02/17/22 11:00 02/17/22 11:09 10 ML Sodium Chloride 100 ml ONCE ONCE IV 02/17/22 11:00 02/17/22 11:01 DC 02/17/22 11:09 80 ML Vital Signs/I&O 02/17/22 10:50 Temp 36.4 Pulse 84 Resp 18 B/P (MAP) 135/97 (110) Pulse Ox 97 O2 Delivery Room Air Blood Pressure Mean: 110 Departure Communication (Admissions) NAME: SASHA HUFF MED REC#: [id number] PT STATUS: REG ER : 1980 PHYSICIAN: DERRICK HERNANDEZ APRN ADMIT DATE: 02/17/22/ER Draft Date of Exam:02/17/22 CT ABDOMEN/PELVIS W PROCEDURE: CT abdomen and pelvis with contrast. TECHNIQUE: Multiple contiguous axial images were obtained through the abdomen and pelvis after administration of intravenous contrast. Auto Exposure Controls were utilized during the CT exam to meet ALARA standards for radiation dose reduction. All CT scans use one or more of the following dose optimizing techniques: automated exposure control, MA and/or KvP adjustment based on patient size and exam type or iterative reconstruction. INDICATION: Abdominal pain and rectal bleeding COMPARISON: 07/26/2021 There is mild groundglass density in the lung bases which may be due to mild edema or pneumonitis. There is low-density throughout the liver indicating steatosis. No focal hepatic, gallbladder, pancreatic, adrenal gland or splenic abnormalities identified. Kidneys are also unremarkable in appearance. There is no evidence of bowel obstruction or inflammation. Unopacified urinary bladder is unremarkable in appearance. The appendix has been surgically removed. IMPRESSION: No acute abdominal or pelvic abnormality is identified. Dictated on workstation # [id number] Dict: 02/17/22 1116 Trans: 02/17/22 1127 [facility] [id number] Interpreted by: MACO PAGE MD Electronically signed by: had one normal appearing soft BM here with a few drops of bright red blood on top of the stool (not mixed into it)--suspect an internal hemorrhoid bleeding as there is No visible external hemorrhoid or palpable mass on MAGALY done with Indra RN at bedside. Impression Primary Impression: Blood in stool Disposition: HOME, SELF-CARE Condition: Stable Departure-Patient Inst. Decision time for Depature: 11:00 Referrals: ANGÉLICA PATINO DO NO,LOCAL PHYSICIAN (PCP) Primary Care Physician Patient Instructions: Hemorrhoids (DC) Add. Discharge Instructions: 1. Call Dr Patino to make an appintment to be seen. Expect to have more drops of blood in the toilet with each bowel movement for the next few days. Take the stool softener as directed. Return to Er for any lightheadedness or any other concerns. All discharge instructions reviewed with patient and/or family. Voiced understanding. Scripts Docusate Sodium (Colace) 100 Mg Capsule 100 MG PO BID, #30 CAP Prov: DERRICK HERNANDEZ APRN 02/17/22 Work/School Note: Work Release Form Date Seen in the Emergency Department: February 17, 2022 Return to Work: February 18, 2022 DERRICK HERNANDEZ APRN February 17, 2022 11:00
[2022-02-17 11:18] LABS: BASOPHILS # (AUTO) 0.1 10^3/uL (0.0-0.1); BASOPHILS % (AUTO) 1 % (0-10); EOSINOPHILS # (AUTO) 0.6 10^3/uL (0.0-0.3); EOSINOPHILS % (AUTO) 7 % (0-10); HEMATOCRIT 50 % (40-54); HEMOGLOBIN 16.8 g/dL (13.3-17.7); LYMPHOCYTES # (AUTO) 2.6 10^3/uL (1.0-4.0); LYMPHOCYTES % (AUTO) 29 % (12-44); MEAN CORPUSCULAR HEMOGLOBIN 30 pg (25-34); MEAN CORPUSCULAR HGB CONC 34 g/dL (32-36); MEAN CORPUSCULAR VOLUME 90 fL (80-99); MEAN PLATELET VOLUME 11.9 fL (9.0-12.2); MONOCYTES # (AUTO) 0.8 10^3/uL (0.0-1.0); MONOCYTES % (AUTO) 9 % (0-12); NEUTROPHILS # (AUTO) 4.8 10^3/uL (1.8-7.8); NEUTROPHILS % (AUTO) 54 % (42-75); PLATELET COUNT 254 10^3/uL (130-400); WHITE BLOOD COUNT 8.9 10^3/uL (4.3-11.0)
--- NOTE | 2022-02-17 11:28 | Diagnostic Imaging Report ---
PROCEDURE: CT abdomen and pelvis with contrast. TECHNIQUE: Multiple contiguous axial images were obtained through the abdomen and pelvis after administration of intravenous contrast. Auto Exposure Controls were utilized during the CT exam to meet ALARA standards for radiation dose reduction. All CT scans use one or more of the following dose optimizing techniques: automated exposure control, MA and/or KvP adjustment based on patient size and exam type or iterative reconstruction. INDICATION: Abdominal pain and rectal bleeding COMPARISON: 07/26/2021 There is mild groundglass density in the lung bases which may be due to mild edema or pneumonitis. There is low-density throughout the liver indicating steatosis. No focal hepatic, gallbladder, pancreatic, adrenal gland or splenic abnormalities identified. Kidneys are also unremarkable in appearance. There is no evidence of bowel obstruction or inflammation. Unopacified urinary bladder is unremarkable in appearance. The appendix has been surgically removed. IMPRESSION: No acute abdominal or pelvic abnormality is identified. Dictated by: Dictated on workstation # [id number]
[2022-02-17 11:35] LABS: ALBUMIN 4.5 GM/DL (3.2-4.5)
[2022-02-17 11:36] LABS: CALCIUM 9.6 MG/DL (8.5-10.1)
[2022-02-17 11:37] LABS: TOTAL PROTEIN 7.8 GM/DL (6.4-8.2)
[2022-02-17 11:39] LABS: BILIRUBIN,TOTAL 0.8 MG/DL (0.1-1.0)
[2022-02-17 11:41] LABS: CREATININE SERUM 0.89 MG/DL (0.60-1.30)
[2022-02-17] MEDS ORDERED: DOCU-143 PO (11:48)
[2022-02-17 11:54] VITALS: BP 133/95
== END 2022-02-17 11:54 | disposition home or self-care (01) ==
LOC: EDUNIT# 10:34 → ER 10:36
DX: K92.1 Melena (principal); F17.210 Nicotine dependence, cigarettes, uncomplicated; Z87.19 Personal history of other diseases of the digestive system
CPT/HCPCS: 36415; 74177; 80053; 85025

== ENCOUNTER 2022-03-12 05:39 | Outpatient (CLI) | payer OTHER ==
[~2022-03-12] VITALS: Ht 170.2 cm; Wt 79.7 kg
[~2022-03-12 05:39] MED LIST changes: +DOCU-143 PO
== END 2022-03-14 14:33 | disposition home or self-care (01) ==
LOC: PREOP 05:39
PROVIDERS: ATTEND Surgery
DX: Z01.818 Encounter for other preprocedural examination (principal)

== ENCOUNTER 2022-03-21 12:43 | Day surgery (SDC) | payer OTHER ==
[~2022-03-21] VITALS: Ht 170 cm; Wt 79.7 kg
[2022-03-21] MEDS ORDERED: LACTATED RINGERS 1,000 ML IV STA (12:55)
[2022-03-21 13:30] VITALS: BP 125/87
--- NOTE | 2022-03-21 14:40 | Progress Note-Pre Operative ---
Pre-Operative Progress Note H&P Reviewed The H&P was reviewed, patient examined and no changes noted. Date Seen by Provider: Mar 21, 2022 Time Seen by Provider: 14:40 Date H&P Reviewed: Mar 21, 2022 Time H&P Reviewed: 14:40 Pre-Operative Diagnosis: blood in stool ANGÉLICA PATINO DO Mar 21, 2022 14:40
[2022-03-21] MEDS ORDERED: PROPOFOL INJECTION 50 ML IV ONE (14:41)
[2022-03-21] MEDS ORDERED: MIDAZOLAM 2 MG/2 ML (VERSED) VIAL ONE (14:41)
[2022-03-21 15:00] VITALS: BP 113/76
[2022-03-21 15:05] VITALS: BP 111/77
--- NOTE | 2022-03-21 15:37 | Anesthesia-General Post-Op ---
MAC Patient Condition Mental Status/LOC: Same as Preop Cardiovascular: Satisfactory Nausea/Vomiting: Absent Respiratory: Satisfactory Pain: Controlled Complications: Absent Post Op Complications Complications None Follow Up Care/Instructions Patient Instructions None needed. Anesthesiology Discharge Order Discharge Order Patient is doing well, no complaints, stable vital signs, no apparent adverse anesthesia problems. No complications reported per nursing. TAMELA CAMPA CRNA Mar 21, 2022 15:37
--- NOTE | 2022-03-21 15:44 | Discharge Inst-Simple/Standard ---
Discharge Inst-Standard Patient Instructions/Follow Up Plan of Care/Instructions/FU: 2 weeks Heath Activity as Tolerated: Yes Discharge Diet: Regular Diet (high fiber, keep stools soft) ANGÉLICA PATINO DO Mar 21, 2022 15:44
--- NOTE | 2022-03-21 15:45 | Progress Note-Post Operative ---
Post-Operative Progess Note Surgeon (s)/Operator Technician (s) Surgeon ANGÉLICA PATINO DO Operator Technician: na Pre-Operative Diagnosis blood in stool Post-Operative Diagnosis post anal fissure Procedure & Operative Findings Date of Procedure 03/21/22 Procedure Performed/Findings colonoscopy Anesthesia Type per feller buncher operator Estimated Blood Loss Estimated blood loss (mL): none Specimens/Packing Specimens Removed na ANGÉLICA PATINO DO Mar 21, 2022 15:45
[2022-03-21 15:55] VITALS: BP 120/88
[2022-03-21 16:00] VITALS: BP 120/88
--- NOTE | 2022-03-22 02:23 | OPERATIVE REPORT ---
DATE OF SERVICE: 03/21/2022 PREOPERATIVE DIAGNOSIS: Blood in stool. POSTOPERATIVE DIAGNOSIS: Posterior anal fissure. SURGEON: Angélica Joe DO. ANESTHESIA: Per BIOPHYSICS PROFESSOR. ESTIMATED BLOOD LOSS: None. COMPLICATIONS: None. PROCEDURE: Colonoscopy. INDICATIONS: The patient is a 42-year-old male who continues to have intermittent bleeding episodes. He understands risks and benefits of procedure and wishes to proceed. Consent was signed in the chart. DESCRIPTION OF PROCEDURE: The patient was taken to the endoscopy suite, placed in left lateral recumbent position. Timeout was performed. Digital rectal exam was performed noting a posterior anal fissure. No palpable polyps, masses or ulcerations otherwise. Scope was inserted in the rectum and advanced all the way to cecum with minimal difficulty. Prep was adequate with irrigation and suction. Scope was then slowly retracted back. No polyps, masses or ulcerations in the cecum, ascending, transverse, descending and sigmoid colon. Once in the rectum, scope was retroflexed noting no other pathology. Scope was returned to its normal position, slowly withdrawn until completely removed. The patient tolerated the procedure well without any complications. He was taken to recovery room in stable condition. RECOMMENDATIONS: The patient will need repeat colonoscopy per screening guidelines. If he has further issues, he needs to be reevaluated at that time. The patient was instructed to keep stools soft using stool softeners. If no improvement, we would use diltiazem cream. If no improvement, we would possibly need left lateral internal sphincterotomy. Job ID: [id number] DocumentID: [id number] Dictated Date: 03/21/2022 15:59:32 Electronic Imager Date: 03/22/2022 02:22:12 Dictated By: ANGÉLICA JOE DO
== END 2022-03-21 16:05 | disposition home or self-care (01) ==
LOC: ENDO 12:43
PROVIDERS: ATTEND Surgery
DX: K60.2 Anal fissure, unspecified (principal); K21.9 Gastro-esophageal reflux disease without esophagitis; F17.210 Nicotine dependence, cigarettes, uncomplicated; Z28.310 Unvaccinated for COVID-19; Z28.20 Immunization not carried out because of patient decision for unspecified reason; Z79.899 Other long term (current) drug therapy; Z86.010 Personal history of colon polyps

== ENCOUNTER 2023-04-25 23:05 | Observation (INO) | payer BC ==
[~2023-04-25] VITALS: Ht 170.2 cm; Wt 78.3 kg
[2023-04-25] MEDS ORDERED: IBUPROFEN 800 MG (MOTRIN) TAB PO ONE (23:45)
[2023-04-25] MEDS ORDERED: PIPERACILLIN SODIUM/TAZOBACTAM 4.5 GM in NS (IVPB) 100 ML IV ONE (23:45)
[2023-04-25] MEDS ORDERED: LACTATED RINGERS 1,000 ML IV ONE (23:45)
[2023-04-25] MEDS ORDERED: ACETAMINOPHEN 500 MG TAB (TYLENOL) PO ONE (23:45)
[2023-04-26] VITALS (7 sets, daily range): BP systolic 101–125; BP diastolic 63–86
[2023-04-26 00:05] LABS: BASOPHILS # (AUTO) 0.1 10^3/uL (0.0-0.1); BASOPHILS % (AUTO) 1 % (0-10); EOSINOPHILS # (AUTO) 0.4 10^3/uL (0.0-0.3); EOSINOPHILS % (AUTO) 3 % (0-10); HEMATOCRIT 45 % (40-54); HEMOGLOBIN 15.2 g/dL (13.3-17.7); LYMPHOCYTES # (AUTO) 2.2 10^3/uL (1.0-4.0); LYMPHOCYTES % (AUTO) 14 % (12-44); MEAN CORPUSCULAR HEMOGLOBIN 30 pg (25-34); MEAN CORPUSCULAR HGB CONC 34 g/dL (32-36); MEAN CORPUSCULAR VOLUME 90 fL (80-99); MEAN PLATELET VOLUME 12.1 fL (9.0-12.2); MONOCYTES # (AUTO) 1.4 10^3/uL (0.0-1.0); MONOCYTES % (AUTO) 9 % (0-12); NEUTROPHILS # (AUTO) 11.3 10^3/uL (1.8-7.8); NEUTROPHILS % (AUTO) 73 % (42-75); PLATELET COUNT 225 10^3/uL (130-400); WHITE BLOOD COUNT 15.6 10^3/uL (4.3-11.0)
[2023-04-26 00:12] LABS: ALBUMIN 3.8 GM/DL (3.2-4.5); POTASSIUM 3.4 MMOL/L (3.6-5.0)
[2023-04-26 00:13] LABS: CALCIUM 9.1 MG/DL (8.5-10.1)
[2023-04-26 00:14] LABS: TOTAL PROTEIN 6.9 GM/DL (6.4-8.2)
[2023-04-26 00:15] LABS: INR 1.1 (0.8-1.4)
[2023-04-26 00:16] LABS: BILIRUBIN,TOTAL 0.3 MG/DL (0.1-1.0)
[2023-04-26 00:18] LABS: CREATININE SERUM 0.82 MG/DL (0.60-1.30)
[2023-04-26 00:21] LABS: MAGNESIUM 1.9 MG/DL (1.6-2.4)
[2023-04-26 00:34] LABS: EOSINOPHILS % (MANUAL) 3 %; LYMPHOCYTES % (MANUAL) 12 %; MONOCYTES % (MANUAL) 8 %; NEUTROPHILS % (MANUAL) 77 %; RBC MORPH NORMAL
[2023-04-26] MEDS ORDERED: HOLD METFORMIN - RECEIVED CONTRAST 20 ML VIAL IV SCH (01:00)
[2023-04-26] MEDS ORDERED: NS 100 ML (IVPB) BAG IV ONE (01:00)
[2023-04-26] MEDS ORDERED: CATHETER FLUSH 10 ML SYR IV PRN (01:00)
[2023-04-26] MEDS ORDERED: IOHEXOL 350 MG/ML 100 ML (OMNIPAQUE 350) VIAL IV ONE (01:00)
[2023-04-26 01:44] LABS: BILIRUBIN,URINE NEGATIVE (NEGATIVE); CLARITY,URINE CLEAR; COLOR,URINE YELLOW; GLUCOSE, URINE (UA) NEGATIVE (NEGATIVE); KETONES,URINE NEGATIVE (NEGATIVE); LEUKOCYTE ESTERASE ,URINE NEGATIVE (NEGATIVE); NITRITE,URINE NEGATIVE (NEGATIVE); PH,URINE 6.5 (5-9); PROTEIN,URINE NEGATIVE (NEGATIVE)
[2023-04-26 01:56] LABS: BACTERIA,URINE NEGATIVE /HPF
--- NOTE | 2023-04-26 02:49 | ED Abdominal Pain ---
General Chief Complaint: Abdominal/GI Problems Stated Complaint: ABD PAIN,DIARRHEA Nursing Triage Note: PT AMBULATORY TO ROOM WITH SON. TRIAGE DONE WITH USE OF DRY CURE WORKER. PT STATES HE HAS HAD CRAMPING ABDOMINAL PAIN THAT STARTED YESTERDAY THAT "COMES AND GOES" EVERY 10 MINS. REPORTS HE HAS HAD HIS APPENDIX REMOVED. STATES HE HAS HAD REGULAR BOWEL MOVEMENTS. STATES HE HAS HAD NO INJURIES TO AREA. PT STATES HE TOOK A TYLENOL A FEW HOURS BUSHLER AND AN "LEONORA SELTZER" TYPE DRINK. PT ALSO REPORTS BODY ACHES THAT STARTED TODAY. PT HAS FEVER ON ARRIVAL. 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 ) Exam Limitations: Language Barrier History of Present Illness Date Seen by Provider: Apr 25, 2023 Time Seen by Provider: 23:30 Initial Comments PT ARRIVES VIA POV FROM HOME WITH FAMILY MEMBERS PT STATES SINCE YESTERDAY HE HAS HAD GENERALIZED ABDOMINAL PAIN / CRAMPING THAT COMES AND GOES EVERY 10 MINUTES, PAIN MOVES ALL OVER HIS ABDOMEN HE HAS HAD NAUSEA, BUT NO VOMITING--HE HAD A FEW PIECES OF PIZZA TODAY, AND PAIN GOT WORSE YESTERDAY, HE HAD DIARRHEA WITH THE CRAMPING--HAD 3 DIARRHEA STOOLS YESTERDAY, HE HAS NOT BEEN ABLE TO HAVE A BM SINCE THEN NO URINARY SYMPTOMS AND VOIDING A NORMAL AMOUNT BEGAN HAVING BODY ACHES TODAY/ THIS AFTERNOON HE TOOK A TYLENOL A FEW HOURS AGO, AND AN "LEONORA SELTZER" TYPE DRINK PRIOR TO ARRIVAL NO KNOWN SICK CONTACTS OR SUSPICIOUS FOODS HE HAS HAD PRIOR APPENDECTOMY 10 YEARS AGO. NO OTHER SURGERIES, NO PRIOR GI PROBLEMS NO MEDICAL PROBLEMS, AND TAKES NO DAILY MEDICATIONS PT SMOKES AND DRINKS ON WEEKENDS, LAST ALCOHOL INTAKE WAS YESTERDAY--6 OR 7 BEERS. PCP: NONE. GOES TO ON-SITE AT HIS WORK IF HE NEEDS ANY MEDICAL CARE. DOES NOT GO ON A REGULAR BASIS AND HAS NOT BEEN THERE FOR THIS PROBLEM Allergies and Home Medications Allergies Coded Allergies: No Known Drug Allergies (Unverified , 03/23/20) Patient Home Medication List Home Medication List Reviewed: Yes Docusate Sodium (Colace) 100 Mg Capsule, 100 MG PO BID Prescribed by: DERRICK HERNANDEZ on 02/17/22 1148 Pantoprazole Sodium (Pantoprazole Sodium) 40 Mg Tablet., 40 MG PO DAILY, (Reported) Entered as Reported by: ROLO SCHUMACHER on 12/06/21 1239 Sucralfate (Sucralfate) 1 Gm Tablet, 1 GM PO QID, (Reported) Entered as Reported by: ROLO SCHUMACHER on 12/06/21 1239 Review of Systems Review of Systems Constitutional: see HPI EENTM: No Symptoms Reported Respiratory: No Symptoms Reported; Denies Cough, Denies Shortness of Air Cardiovascular: No Symptoms Reported; Denies Chest Pain Gastrointestinal: See HPI, Abdominal Pain; Denies Constipated; Diarrhea, Nausea, Poor Appetite; Denies Poor Fluid Intake, Denies Rectal Bleeding, Denies Vomiting Genitourinary: No Symptoms Reported Musculoskeletal: see HPI (BODY ACHES) Skin: no symptoms reported Psychiatric/Neurological: No Symptoms Reported; Denies Headache Endocrine: No Symptoms Reported Hematologic/Lymphatic: No Symptoms Reported Past Kdgkgpo-Lecaqu-Bsnetr Hx Patient Social History Tobacco Use?: Yes Tobacco type used: Cigarettes Smoking Status: Current Someday Smoker Substance use?: No Alcohol Use?: Yes Alcohol type: Beer Alcohol Frequency: Couple times a week Immunizations Up To Date Influenza Vaccine Up-to-Date: No; Not Current First/Initial COVID19 Vaccinat: NO Second COVID19 Vaccination Srinivas: NO Third COVID19 Vaccination Date: NO Seasonal Allergies Seasonal Allergies: No Past Medical History Surgery/Hospitalization HX: EGD, COLONOSCOPY, APPY Surgeries: Yes (COLONOSCOPY 03/30/20--HEMORRHOIDS) Appendectomy Respiratory: No Currently Using CPAP: No Currently Using BIPAP: No Cardiac: No Neurological: No Reproductive Disorders: No Sexually Transmitted Disease: No HIV/AIDS: No Genitourinary: No Gastrointestinal: Yes (COLONOSCOPY 03/30/20--HEMORRHOIDS) Gastrointestinal Bleed, Hemorrhoids Musculoskeletal: Yes Chronic Back Pain Endocrine: No HEENT: No Loss of Vision: Denies Hearing Impairment: Denies Cancer: No Psychosocial: No Integumentary: No Blood Disorders: No Adverse Reaction/Blood Tranf: No (N/A) Family Medical History SOCIAL HISTORY: -SMOKES AND DRINKS ON WEEKENDS -DENIES DRUG USE Physical Exam Vital Signs Vital Signs - First Documented 04/25/23 23:20 Temp 38.5 Pulse 97 Resp 20 B/P (MAP) 124/80 (95) Pulse Ox 97 Capillary Refill : Height/Weight/BMI Height: '" Weight: lbs. oz. kg; 25.00 BMI Method: General Appearance: WD/WN, no apparent distress, other (DOES NOT APPEAR ILL OR TO BE IN ANY DISCOMFORT OR DISTRESS. LAYING OUTSTRETCHED WITH ARMS OVERHEAD. WALKS UPRIGHT AND MOVES WITHOUT DIFFICULTY) HEENT: PERRL/EOMI Neck: normal inspection Respiratory: normal breath sounds, no respiratory distress, no accessory muscle use Cardiovascular: no edema, no murmur, tachycardia Gastrointestinal: no organomegaly, no pulsatile mass, abnormal bowel sounds (DECREASED), distended (SLIGFHTLY DISTENDED AND SLIGHTLY FIRM); No guarding, No rebound; tenderness (MILD TO MODERATE DIFFUSE TENDERNESS); No hernia, No mass Extremities: normal inspection, normal capillary refill Back: no CVA tenderness Neurologic/Psychiatric: associate product manager II-XII nml as tested, no motor/sensory deficits, alert, normal mood/affect, oriented x 3 Skin: normal color (PT IS ), warm/dry; No rash Focused Exam Sepsis Stage: Sepsis Possible Source: GI Tract/Intra-Abdominal Lactate Level 04/25/23 23:49: Lactic Acid Level 1.09 Time of Focused Exam: 03:00 Respiratory: Normal Breath Sounds, No Accessory Muscle Use, No Respiratory Distress Cardiovascular: Regular Rate, Rhythm, No Murmur Capillary Refill: Less Than 3 Seconds Skin: normal color, warm/dry Lactic Acid Level Laboratory Tests Test 04/25/23 23:49 Lactic Acid Level 1.09 MMOL/L (0.50-2.00) Within 3hrs of presentation: Admin fluids, Admin ABX, Blood cultures prior to ABX's, Focus exam, Lactate level Progress/Results/Core Measures Results/Orders Lab Results Laboratory Tests Test 04/25/23 23:49 04/26/23 00:13 04/26/23 01:34 Range/Units White Blood Count 15.6 H 4.3-11.0 10^3/uL Red Blood Count 5.00 4.30-5.52 10^6/uL Hemoglobin 15.2 13.3-17.7 g/dL Hematocrit 45 40-54 % Mean Corpuscular Volume 90 80-99 fL Mean Corpuscular Hemoglobin 30 25-34 pg Mean Corpuscular Hemoglobin Concent 34 32-36 g/dL Red Cell Distribution Width 12.8 10.0-14.5 % Platelet Count 225 130-400 10^3/uL Mean Platelet Volume 12.1 9.0-12.2 fL Immature Granulocyte % (Auto) 0 % Neutrophils (%) (Auto) 73 42-75 % Lymphocytes (%) (Auto) 14 12-44 % Monocytes (%) (Auto) 9 0-12 % Eosinophils (%) (Auto) 3 0-10 % Basophils (%) (Auto) 1 0-10 % Neutrophils # (Auto) 11.3 H 1.8-7.8 10^3/uL Lymphocytes # (Auto) 2.2 1.0-4.0 10^3/uL Monocytes # (Auto) 1.4 H 0.0-1.0 10^3/uL Eosinophils # (Auto) 0.4 H 0.0-0.3 10^3/uL Basophils # (Auto) 0.1 0.0-0.1 10^3/uL Immature Granulocyte # (Auto) 0.1 0.0-0.1 10^3/uL Neutrophils % (Manual) 77 % Lymphocytes % (Manual) 12 % Monocytes % (Manual) 8 % Eosinophils % (Manual) 3 % Blood Morphology Comment NORMAL Prothrombin Time 14.0 12.2-14.7 SEC INR Comment 1.1 0.8-1.4 Activated Partial Thromboplast Time 31 24-35 SEC Sodium Level 137 135-145 MMOL/L Potassium Level 3.4 L 3.6-5.0 MMOL/L Chloride Level 106 98-107 MMOL/L Carbon Dioxide Level 24 21-32 MMOL/L Anion Gap 7 5-14 MMOL/L Blood Urea Nitrogen 10 7-18 MG/DL Creatinine 0.82 0.60-1.30 MG/DL Estimat Glomerular Filtration Rate 112 BUN/Creatinine Ratio 12 Glucose Level 116 H 70-105 MG/DL Lactic Acid Level 1.09 0.50-2.00 MMOL/L Calcium Level 9.1 8.5-10.1 MG/DL Corrected Calcium 9.3 8.5-10.1 MG/DL Magnesium Level 1.9 1.6-2.4 MG/DL Total Bilirubin 0.3 0.1-1.0 MG/DL Aspartate Amino Transf (AST/SGOT) 21 5-34 U/L Alanine Aminotransferase (ALT/SGPT) 44 0-55 U/L Alkaline Phosphatase 66 40-136 U/L Total Protein 6.9 6.4-8.2 GM/DL Albumin 3.8 3.2-4.5 GM/DL Amylase Level 56 25-125 U/L Lipase 28 8-78 U/L SARS-CoV-2 RNA (RT-PCR) Not Detected Not Detecte Urine Color YELLOW Urine Clarity CLEAR Urine pH 6.5 5-9 Urine Specific Sterling 1.015 L 1.016-1.022 Urine Protein NEGATIVE NEGATIVE Urine Glucose (UA) NEGATIVE NEGATIVE Urine Ketones NEGATIVE NEGATIVE Urine Nitrite NEGATIVE NEGATIVE Urine Bilirubin NEGATIVE NEGATIVE Urine Urobilinogen 1.0 < = 1.0 MG/DL Urine Leukocyte Esterase NEGATIVE NEGATIVE Urine RBC (Auto) 1+ H NEGATIVE Urine RBC 5-10 H /HPF Urine WBC NONE /HPF Urine Crystals NONE /LPF Urine Bacteria NEGATIVE /HPF Urine Casts NONE /LPF Urine Mucus SMALL H /LPF Urine Culture Indicated NO My Orders Orders - LINDA BROWNE DO Ed Iv/Invasive Line Start (04/25/23 23:30) Monitor-Rhythm Ecg Trace Only (04/25/23:) Covid 19 Inhouse Test (04/25/23:) Cbc With Automated Diff (04/25/23:) Comprehensive Metabolic Panel (04/25/23:) Blood Culture (04/25/23:) Sputum Culture (04/25/23:) Urine Culture (04/25/23:) Protime With Inr (04/25/23:) Partial Thromboplastin Time (04/25/23:30) Ed Iv/Invasive Line Start (04/25/23:30) Ed Iv/Invasive Line Start (04/25/23:30) Vital Signs Adult Sepsis Patie Q15M (04/25/23:30) O2 (04/25/23:30) Remove Rings In Anticipation O (04/25/23:) Lactic Acid Analyzer (04/25/23:) Amylase (04/25/23:32) Lipase (04/25/23:32) Magnesium (04/25/23:32) Ua Culture If Indicated (04/25/23:32) Ed Iv/Invasive Line Start (04/25/23 23:32) Lactated Ringers (Lr 1000 Ml Iv Solution (04/25/23 23:45) Piperacillin Sodium/Tazobactam (Zosyn Vi (04/25/23 23:45) Acetaminophen Tablet (Tylenol Tablet) (04/25/23 23:45) Ibuprofen Tablet (Motrin Tablet) (04/25/23 23:45) Ct Abdomen/Pelvis W (04/26/23 00:01) Manual Differential (04/25/23 23:49) Iohexol Injection (Omnipaque 350 Mg/Ml 1 (04/26/23 01:00) Received Contrast (Hold Metformin- Contr (04/26/23 01:00) Sodium Chloride Flush (Catheter Flush Sy (04/26/23 01:00) Ns (Ivpb) (Sodium Chloride 0.9% Ivpb Bag (04/26/23 01:00) Medications Given in ED Current Medications Medications Dose Ordered Sig/Eneida Route Start Time Stop Time Status Last Admin Dose Admin Acetaminophen 1,000 mg ONCE ONCE PO 04/25/23 23:45 04/25/23 23:46 DC 04/26/23 00:06 1,000 MG Iohexol 100 ml ONCE ONCE IV 04/26/23 01:00 04/26/23 01:01 DC 04/26/23 01:09 80 ML Lactated Ringer's 1,000 ml @ 0 mls/hr Q0M ONCE IV 04/25/23 23:45 04/25/23 23:46 DC 04/26/23 00:05 999 MLS/HR Piperacillin Sod/ Tazobactam Sod 4.5 gm/Sodium Chloride 100 ml @ 200 mls/hr ONCE ONCE IV 04/25/23 23:45 04/26/23 00:14 DC 04/26/23 01:01 200 MLS/HR Sodium Chloride 10 ml NEEDED PRN IV 04/26/23 01:00 04/26/23 01:09 10 ML Sodium Chloride 100 ml ONCE ONCE IV 04/26/23 01:00 04/26/23 01:01 DC 04/26/23 01:09 80 ML Vital Signs/I&O 04/25/23 04/26/23 23:20 04:34 Temp 38.5 Pulse 97 75 Resp 20 16 B/P (MAP) 124/80 (95) 100/63 (75) Pulse Ox 97 95 Blood Pressure Mean: 95 Progress Progress Note : Progress Note VITALS ON ARRIVAL: TEMP 38.5=101.5, HR 102, BP 124/80, RR 20, O2 SATS 97% ON ROOM AIR SEPSIS PROTOCOL INITIATED GIVEN: -IV FLUIDS -TYLENOL ( PT REFUSED MOTRIN, BECAUSE THE DR TOLD HIM NOT TO TAKE MOTRIN AFTER HE HAD HIS APPENDIX REMOVED 10 YEARS AGO) -ANTIBIOTICS PERTINENT LABS: -CBC WITH WBC 15.6, NORMAL HGB AND PLT -CMP WITH K 3.4, OTHERWISE NORMAL -LACTIC ACID NORMAL 1.09 -AMYLASE/LIPASE NORMAL -UA WITH 1+ BLOOD AND 5-10 RBC'S, NO BACTERIA,NO LEUKOCYTES -C0VID NEGATIVE MARKED DELAY IN OBTAINING CT RESULTS--XRAY/AUTOMOTIVE PARTS MANAGER HAS CALLED [facility] MULTIPLE TIMES REGARDING GETTING CT READ. > 4 HOURS WAIT TIME FOR RESULTS DISCUSSED TEST RESULTS WITH PT AND DAUGHTER, ANTICIPATED COURSE, NEED FOR ADMIT AND PT IS AGREEABLE TO PLAN. NO DETERIORATION IN PT'S CONDITION DURING ER STAY VITALS STABLE, TEMP AND HR DOWN, BP REMAINS STABLE REVIEWED PRIOR RECORDS INCLUDING ER VISITS, ADMITS/H&P'S/CONSULTS/DISCHARGE SUMMARIES, TESTS/PROCEDURES Diagnostic Imaging Comments CT ABDOMEN/PELVIS--PER [facility] VIA FAX AT [id number]: -DIFFUSE ANNULAR THICKENING OF THE COLON EXTENDING FROM THE CECUM TO THE DESCENDING COLON--LIKELY RELATED TO COLITIS. ASSOCIATED WITH THIS IS SUBMUCOSAL ENHANCEMENT WITH MILD ADJACENT INFLAMMATORY CHANGE WITH MESENTERIC HYPER- VASCULARITY. -NO EVIDENCE OF BOWEL OBSTRUCTION Reviewed: Reviewed by Me Departure Communication (Admissions) 0515--SPOKE WITH DR. HOUGH, HOSPITALIST, ACCEPTS PT FOR ADMIT Impression Primary Impression: Sepsis Additional Impression: Colitis Disposition: ADMITTED INPATIENT Condition: Stable Admissions Decision to Admit Reason: Admit from ER (General) Decision to Admit/Date: Apr 26, 2023 Time/Decision to Admit Time: 05:15 Departure-Patient Inst. Referrals: NO,LOCAL PHYSICIAN (PCP/Family) Primary Care Physician LINDA BROWNE DO Apr 26, 2023 02:49
[2023-04-26] MEDS ORDERED: LACTATED RINGERS 1,000 ML IV ONE (06:10)
[2023-04-26] MEDS: LACTATED RINGERS 1,000 ML IV SCH ×3 (06:15→21:28)
[2023-04-26] MEDS ORDERED: ACETAMINOPHEN 500 MG TAB (TYLENOL) PO PRN (07:15)
[2023-04-26] MEDS ORDERED: fentaNYL INJ 100 MCG/2 ML AMP IV PRN (07:15)
[2023-04-26] MEDS ORDERED: ONDANSETRON 4 MG/2 ML (SDV) Z0FRAN IV PRN (07:15)
[2023-04-26] MEDS: PIPERACILLIN SODIUM/TAZOBACTAM 4.5 GM in NS (IVPB) 100 ML IV SCH ×3 (08:28→23:25)
--- NOTE | 2023-04-26 08:38 | Diagnostic Imaging Report ---
PROCEDURE: CT abdomen and pelvis with contrast. TECHNIQUE: Multiple contiguous axial images were obtained through the abdomen and pelvis after administration of intravenous contrast. Auto Exposure Controls were utilized during the CT exam to meet ALARA standards for radiation dose reduction. All CT scans use one or more of the following dose optimizing techniques: automated exposure control, MA and/or KvP adjustment based on patient size and exam type or iterative reconstruction. INDICATION: Abdominal pain and fever. COMPARISON: 02/17/2022. FINDINGS: The lung bases demonstrate no findings of pneumonia or edema. There is no pleural or pericardial effusion. The liver demonstrates no evidence of a focal intrahepatic abnormality. The gallbladder is nondistended without radiodense stones or biliary dilatation. Hepatic and portal veins are patent. Pancreas is normal. The spleen is normal in size. There is no adrenal mass. The kidneys enhance normally and are nonobstructed. The stomach is nondistended. There are no findings of abnormal small bowel dilation. There is an edematous appearance demonstrated of the ascending colon and the transverse colon with mild submucosal hyperenhancement evident hazy induration within the pericolonic fat that likely is reflective of a colitis. Patient is status post a previous appendectomy. There are no findings of free air, free fluid or abscess. There are mildly prominent right sided mesenteric lymph nodes. Aorta is normal in caliber. There is no acute or suspicious osseous abnormality. IMPRESSION: 1. Diffuse annular thickening of the colon from the cecum to the splenic flexure with submucosal enhancement and adjacent mesenteric induration. The features are suspect for a colitis. There is no bowel obstruction. 2. Previous surgical changes of an appendectomy. 3. No free air, free fluid or abscess. 4. Prominent right mesenteric lymph nodes are presumably reactive in nature. 5. I agree with the preliminary [facility] report. Dictated by: Dictated on workstation # [id number]
[2023-04-26] MEDS ORDERED: HYDROcodone/APAP 7.5 MG/325 MG (LORTAB, LORCET PLUS) TABLET PO PRN (11:00)
--- NOTE | 2023-04-26 13:17 | History & Physical-Hospitalist ---
History of Present Illness HPI/Chief Complaint Patient is a 43-year-old male with no known past medical history who presented to the emergency department due to abdominal pain. He states it started yesterday. He ate some pizza and then had nausea but no vomiting. He has had diarrhea over the past day or so. He describes the pain is all over and cramping in nature. It continued to worsen so he decided to seek evaluation in the emergency department. Upon arrival he was found to be febrile with a temperature of 38.5. CT of his abdomen revealed diffuse colitis and he was admitted for further management. This morning he reports feeling slightly be tter though is still having some pain that is controlled with the fentanyl. Source: patient, family Exam Limitations: language barrier (offered interpretor- pt declined and requested daughter to interpret) Date Seen 04/26/23 Time Seen by a Provider: 13:11 Attending Physician No,Local Physician PCP Admitting Physician: Abby Winn MD Attending Physician: Abby Winn MD Referring Physician Date of Admission Apr 26, 2023 at 05:54 Home Medications & Allergies Home Medications Reviewed patient Home Medication Reconciliation performed by pharmacy medication reconciliations wire technician and/or nursing. Patients Allergies have been reviewed. Allergies Allergies Coded Allergies No Known Drug Allergies (Unverified03/23/20) Past Snytlos-Idwwbl-Osqvvm Hx Patient Social History Employed/Student: employed Tobacco Use?: Yes Tobacco type used: Cigarettes Smoking Status: Current Everyday Smoker Use of E-Cig and/or Vaping dev: No Substance use?: No Alcohol Use?: Yes Alcohol type: Beer Alcohol Frequency: Several times a month Pt feels they are or have been: No Immunizations Up To Date First/Initial COVID19 Vaccinat: NO Second COVID19 Vaccination Srinivas: NO Tetanus Booster (TDap): Unknown Hepatitis A: No Hepatitis B: No Seasonal Allergies Seasonal Allergies: No Current Status Advance Directives: No Communicates: Verbally Primary Language: Serbian Preferred Spoken Language: Serbian Is interpretation needed?: Yes Implanted or Applied Medical D: None Past Medical History Surgeries: Appendectomy Currently Using CPAP: No Currently Using BIPAP: No Sexually Transmitted Disease: No HIV/AIDS: No Gastrointestinal Bleed, Hemorrhoids Chronic Back Pain Loss of Vision: Denies Hearing Impairment: Denies Blood Disorders: No Adverse Reaction/Blood Tranf: No (N/A) Family Medical History SOCIAL HISTORY: -SMOKES AND DRINKS ON WEEKENDS -DENIES DRUG USE Review of Systems Constitutional: see HPI Physical Exam Physical Exam Vital Signs Vital Signs - First Documented 04/25/23 04/26/23 23:20 06:00 Temp 38.5 Pulse 97 Resp 20 B/P (MAP) 124/80 (95) Pulse Ox 97 O2 Delivery Room Air Capillary Refill : Less Than 3 Seconds Height, Weight, BMI Height: '" Weight: lbs. oz. kg; 27.02 BMI Method: General Appearance: No Apparent Distress, WD/WN Respiratory: Lungs Clear, No Respiratory Distress Cardiovascular: Regular Rate, Rhythm, No Murmur Gastrointestinal: Abnormal Bowel Sounds (quiet but present); No Guarding, No Rebound; Tenderness (mild and diffuse) Extremity: No Calf Tenderness, No Pedal Edema Neurologic/Psychiatric: Alert, Oriented x3 Results Results/Procedures Labs Laboratory Tests 04/25/23 23:49 Patient resulted labs reviewed. Imaging: Reviewed Imaging Report Imaging [facility], [place] NAME: RALPH HUFFXON Karlos [facility] REC#: [id number] PT STATUS: ADM IN : 1980 PHYSICIAN: LINDA BROWNE DO ADMIT DATE: 04/26/23 Signed Date of Exam:04/26/23 CT ABDOMEN/PELVIS W PROCEDURE: CT abdomen and pelvis with contrast. TECHNIQUE: Multiple contiguous axial images were obtained through the abdomen and pelvis after administration of intravenous contrast. Auto Exposure Controls were utilized during the CT exam to meet ALARA standards for radiation dose reduction. All CT scans use one or more of the following dose optimizing techniques: automated exposure control, MA and/or KvP adjustment based on patient size and exam type or iterative reconstruction. INDICATION: Abdominal pain and fever. COMPARISON: 02/17/2022. FINDINGS: The lung bases demonstrate no findings of pneumonia or edema. There is no pleural or pericardial effusion. The liver demonstrates no evidence of a focal intrahepatic abnormality. The gallbladder is nondistended without radiodense stones or biliary dilatation. Hepatic and portal veins are patent. Pancreas is normal. The spleen is normal in size. There is no adrenal mass. The kidneys enhance normally and are nonobstructed. The stomach is nondistended. There are no findings of abnormal small bowel dilation. There is an edematous appearance demonstrated of the ascending colon and the transverse colon with mild submucosal hyperenhancement evident hazy induration within the pericolonic fat that likely is reflective of a colitis. Patient is status post a previous appendectomy. There are no findings of free air, free fluid or abscess. There are mildly prominent right sided mesenteric lymph nodes. Aorta is normal in caliber. There is no acute or suspicious osseous abnormality. IMPRESSION: 1. Diffuse annular thickening of the colon from the cecum to the splenic flexure with submucosal enhancement and adjacent mesenteric induration. The features are suspect for a colitis. There is no bowel obstruction. 2. Previous surgical changes of an appendectomy. 3. No free air, free fluid or abscess. 4. Prominent right mesenteric lymph nodes are presumably reactive in nature. 5. I agree with the preliminary [facility] report. Dictated by: Dictated on workstation # [id number] Dict: 04/26/23820 Trans: 04/26/[address] [facility] [id number] Interpreted by: KENZIE YAO MD Electronically signed by: KENZIE YAO MD 04/26/2312 Assessment/Plan Admission Diagnosis colitis Admission Status: Inpatient Order (span 2 midnights) Reason for Inpatient Admission: see below Assessment and Plan colitis Concern for new diagnosis ulcerative colitis- start steroids Surgery consulted, spoke with Dr Oneal who has done his colonoscopies in the past Stool studies pending Continue IV abx Will need outpatient colonoscopy in a few weeks once acute issue resolved Continue fentanyl for pain CLD DVt ppx: SCDs Diagnosis/Problems Diagnosis/Problems (1) Colitis Status: Acute ABBY WINN MD Apr 26, 2023 13:17
--- NOTE | 2023-04-26 13:17 | CONSULTATION REPORT ---
DATE OF SERVICE: 04/26/2023 ATTENDING PHYSICIAN: Dr. Winn. The patient is a 43-year-old male who is known to us. He was seen in consultation with Dr. Oneal. He was seen in 07/2020 for abdominal pain that was more localized in the right lower abdominal quadrant. He presented to the emergency room at [facility] emergency department. A CT scan was performed, which did show inflammation of the appendix consistent with appendicitis. On 07/28/2020, he did undergo a laparoscopic appendectomy. He tolerated the procedure well and was later discharged home. On today's visit, he reports that he developed diffuse abdominal pain that started one day ago and reports that this was crampy in nature and this would come and go. He did report some nausea; however, no vomiting. He also denied any heartburn or reflux. He did report episodes of diarrhea 2 days ago; however, reports that he did not have any bowel movements yesterday or since being here. He denied any blood in his stool as well as no mucousy stools. He also denied any dark tarry stools. He does report, however, that he has had a history of red blood per rectum and did have 2 colonoscopies, last year, one in December of 2021 where he was found to have a cecal polyp, which was consistent with a tubular adenoma. He then underwent another colonoscopy in March of 2022 and at that time was only found to have a posterior anal fissure. He reports that he has not had any blood since that time. He does report that he does have a paternal uncle with colon cancer, but denies any family history of any ulcerative colitis or Crohn's disease. He did undergo a workup in the Emergency Department and was found to have a leukocytosis of 15,000. He was also found to have slightly elevated temperature of 101.5. He underwent a CT scan, which did show diffuse annular thickening of the colon extending from the cecum to the descending colon with associated submucosal enhancement and mild adjacent inflammatory changes with mesenteric hypervascularity, most likely related to colitis. He does report that he is still having some abdominal pain today, but denies any nausea as well as no diarrhea and no fevers. PAST MEDICAL HISTORY: Colon polyp, anal fissure, gastritis. SURGICAL HISTORY: Laparoscopic appendectomy 07/28/2020. ALLERGIES: NO KNOWN DRUG ALLERGIES. MEDICATIONS: None. SOCIAL HISTORY: Positive for tobacco smoke, 23 pack years. Social for alcohol. FAMILY HISTORY: Paternal uncle with colon cancer. VITAL SIGNS: Blood pressure 120/69, pulse 85, respirations 18, pulse ox 98% on room air, temperature 36.4 degrees Celsius. REVIEW OF SYSTEMS: This is a well-nourished male, currently in no acute distress. He is , however, does speak some [place]. He is not experiencing any shortness of breath or difficulty breathing. No chest pain, palpitations or diaphoresis. He did report some episodes of nausea, but no vomiting. He does report diffuse abdominal pain; however, mostly on the right side, currently. He did report episodes of diarrhea, but no constipation. No red blood per rectum. No dark tarry stools. No hematemesis or any coffee-ground emesis. He did have a mild fever. No recent inadvertent weight loss. All other review of systems negative. PHYSICAL EXAMINATION: CHEST: Clear. Good breath sounds bilaterally. HEART: Regular. No sounds. EXTREMITIES: No lower extremity edema. Negative Homans sign. HEENT: No scleral icterus. No cervical lymphadenopathy. ABDOMEN: Soft, nondistended. There is pain with moderate palpation on the right side of abdomen as well as mid lower abdomen. No palpable masses. No peritoneal signs. SKIN: Warm, dry and pink. NEUROLOGIC: Awake, alert and oriented x3. LABORATORY DATA: WBC of 15.6, hemoglobin 15.2, hematocrit 45, platelets 225. ASSESSMENT AND PLAN: A 43-year-old male with colitis extending from the cecum to the descending colon with diffuse annular thickening with submucosal enhancement and adjacent mesenteric induration. There is no free air, free fluid or any abscesses identified. At this time, we will proceed with IV fluids as well as IV antibiotics, pain and antinausea medication. We will also await the results of the stool culture, O and P as well as C. diff results. We will also start him on a clear liquid diet and once his symptoms improve, then we will start advancing his diet. He will also need a followup colonoscopy with biopsies in approximately 6 weeks as an outpatient to rule out the potential of an ulcerative colitis versus a Crohn's disease. Job ID: [id number] DocumentID: [id number] Dictated Date: 04/26/2023 11:27:56 Net Programmer Analyst Date: 04/26/2023 13:14:00 Dictated By: EMILE CHARLES
[2023-04-26] MEDS: methylPREDNISolone 40 MG/ML (Solu-MEDROL) VIAL IV SCH ×2 (17:17→21:29)
[2023-04-27 03:48] VITALS: BP 101/64
[2023-04-27] MEDS: methylPREDNISolone 40 MG/ML (Solu-MEDROL) VIAL IV SCH ×2 (05:26→13:56)
[2023-04-27 05:46] LABS: BASOPHILS % (AUTO) 0 % (0-10); EOSINOPHILS % (AUTO) 0 % (0-10); HEMATOCRIT 45 % (40-54); HEMOGLOBIN 15.1 g/dL (13.3-17.7); LYMPHOCYTES # (AUTO) 1.4 10^3/uL (1.0-4.0); LYMPHOCYTES % (AUTO) 9 % (12-44); MEAN CORPUSCULAR HEMOGLOBIN 30 pg (25-34); MEAN CORPUSCULAR HGB CONC 34 g/dL (32-36); MEAN CORPUSCULAR VOLUME 90 fL (80-99); MEAN PLATELET VOLUME 11.8 fL (9.0-12.2); MONOCYTES # (AUTO) 0.3 10^3/uL (0.0-1.0); MONOCYTES % (AUTO) 2 % (0-12); NEUTROPHILS # (AUTO) 13.9 10^3/uL (1.8-7.8); NEUTROPHILS % (AUTO) 89 % (42-75); PLATELET COUNT 275 10^3/uL (130-400); WHITE BLOOD COUNT 15.7 10^3/uL (4.3-11.0)
[2023-04-27 06:16] LABS: ALBUMIN 3.7 GM/DL (3.2-4.5); BILIRUBIN,TOTAL 0.4 MG/DL (0.1-1.0); CALCIUM 9.4 MG/DL (8.5-10.1); CREATININE SERUM 0.8 MG/DL (0.60-1.30); POTASSIUM 3.9 MMOL/L (3.6-5.0); TOTAL PROTEIN 6.9 GM/DL (6.4-8.2)
[2023-04-27] MEDS: PIPERACILLIN SODIUM/TAZOBACTAM 4.5 GM in NS (IVPB) 100 ML IV SCH ×2 (07:29→16:00)
[2023-04-27] MEDS: LACTATED RINGERS 1,000 ML IV SCH ×2 (07:29→17:21)
[2023-04-27 08:17] VITALS: BP 130/84
[2023-04-27] MEDS ORDERED: METR-145 PO (09:54)
[2023-04-27] MEDS ORDERED: PRD20T PO (09:54)
[2023-04-27] MEDS ORDERED: CIPR500T5 PO (09:54)
[2023-04-27 11:58] VITALS: BP 113/68
[2023-04-27 16:27] VITALS: BP 132/83
--- NOTE | 2023-04-27 18:50 | Discharge Summary ---
Discharge Summary Hospital Course Problems/Dx: (1) Colitis Status: Acute Hospital Course Date of Admission: Apr 26, 2023 at 05:54 Admission Diagnosis : Colitis Family Physician/Provider: Chani Figueroa Physician Date of Discharge: 04/27/23 Discharge Diagnosis: Colitis Hospital Course: Aaron Silva is a 43 year old male who was admitted with colitis. He was having abdominal pain, fevers, and diarrhea. CT was consistent with inflammation from the cecum to the splenic flexure. Surgery was consulted and assisted with his care. He reportedly had a recent colonoscopy which showed inflammation but biopsies were not performed. Dr. Oneal was concerned about possible inflammatory bowel disease. He was treated with IV fluids, antibiotics, and steroids. His symptoms improved. He was discharged with a short course of antibiotics. He was also given a two week course of Prednisone. He will likely need a taper following the two week course, as long as his symptoms continue to improve. He needs to establish with a primary care provider. He should also follow up with Dr. Oneal in a few weeks. He needs a follow up colonoscopy in 1-2 months. He was discharged home in improved, stable condition. Labs and Pending Lab Test: Laboratory Tests 04/27/23 05:30: White Blood Count 15.7H, Red Blood Count 4.97, Hemoglobin 15.1, Hematocrit 45, Mean Corpuscular Volume 90, Mean Corpuscular Hemoglobin 30, Mean Corpuscular Hemoglobin Concent 34, Red Cell Distribution Width 12.4, Platelet Count 275, Mean Platelet Volume 11.8, Immature Granulocyte % (Auto) 1, Neutrophils (%) (Auto) 89H, Lymphocytes (%) (Auto) 9L, Monocytes (%) (Auto) 2, Eosinophils (%) (Auto) 0, Basophils (%) (Auto) 0, Neutrophils # (Auto) 13.9H, Lymphocytes # (Auto) 1.4, Monocytes # (Auto) 0.3, Eosinophils # (Auto) 0.0, Basophils # (Auto) 0.0, Immature Granulocyte # (Auto) 0.1, Sodium Level 139, Potassium Level 3.9, Chloride Level 106, Carbon Dioxide Level 24, Anion Gap 9, Blood Urea Nitrogen 7, Creatinine 0.80, Estimat Glomerular Filtration Rate 113, BUN/Creatinine Ratio 9, Glucose Level 151H, Calcium Level 9.4, Corrected Calcium 9.6, Total Bilirubin 0.4, Aspartate Amino Transf (AST/SGOT) 33, Alanine Aminotransferase (ALT/SGPT) 58H, Alkaline Phosphatase 63, Total Protein 6.9, Albumin 3.7 Microbiology 04/26/23 Cryptosporidium/Giardia - Final, Complete See Comments 04/26/23 Urine Culture - Final, Complete NO GROWTH 04/26/23 Blood Culture - Preliminary, Resulted No growth Home Meds Active Prednisone 20 Mg Tab 60 Mg PO DAILY 14 Days Metronidazole 500 Mg Tablet 500 Mg PO TID 5 Days Ciprofloxacin HCl 500 Mg Tablet 500 Mg PO BID 5 Days Assessment/Pt Instructions See instructions Discharge Planning: <30 minutes discharge planning Discharge Instructions Discharge Diet: No Restrictions Consultations Surgery Discharge Physical Examination Vital Signs Vital Signs Date Time Temp Pulse Resp B/P (MAP) Pulse Ox O2 Delivery O2 Flow Rate FiO2 04/27/23 16:27 36.5 80 18 132/83 (99) 98 Room Air General Appearance: No Apparent Distress, WD/WN Respiratory: Lungs Clear, No Respiratory Distress Cardiovascular: Regular Rate, Rhythm, No Murmur Gastrointestinal: Normal Bowel Sounds, Soft Extremity: Normal Inspection, No Pedal Edema Skin: Normal Color, Warm/Dry Neurologic/Psychiatric: Alert, Normal Mood/Affect Allergies: Coded Allergies: No Known Drug Allergies (Unverified , 03/23/20) Copy Copies To 1: CHARLOTTE MINOR DO Copies To 2: CHEN ONEAL MD Discharge Summary Date of Admission Apr 26, 2023 at 05:54 Date of Discharge Apr 27, 2023 at 17:55 Discharge Date: Apr 27, 2023 Discharge Time: 17:55 Admission Diagnosis colitis Consults/Procedures Consulations Surgery Discharge Diagnosis (1) Colitis Status: Acute WING GIBBONS MD Apr 27, 2023 18:46
== END 2023-04-27 17:55 | disposition home or self-care (01) ==
LOC: EDUNIT# 23:05 → ER 23:10 → 4TH 04-26 05:54 → INTOOBSV 04-26 05:54
PROVIDERS: ADMIT Family Medicine; ATTEND Internal Medicine
DX: K52.9 Noninfective gastroenteritis and colitis, unspecified (principal); A41.9 Sepsis, unspecified organism; F17.210 Nicotine dependence, cigarettes, uncomplicated; Z28.310 Unvaccinated for COVID-19
CPT/HCPCS: 74177; 80053 ×2; 81000; 82150; 83605; 83690; 83735; 85007; 85025; 85027; 85610; 85730; 87015; 87040 ×2; 87045; 87046; 87077; 87088; 87324; 87328; 87329; 87449; 87636; 87899; 96361; 96366 ×2; 96375; 96376 ×2; 99284; G0378; 36415; 96365

== ENCOUNTER 2023-06-10 10:21 | Day surgery (SDC) | payer BC ==
--- NOTE | 2023-06-01 15:04 | HISTORY AND PHYSICAL ---
DATE OF SERVICE: 06/01/2023 DATE OF SCHEDULED PROCEDURE: 06/10/2023 INDICATION: The patient is a 43-year-old male who is known to us. He was seen in 07/2020 for abdominal pain that was more localized to his right lower abdominal quadrant. He had a CT scan performed, and at that time, did show inflammation of the appendix consistent with appendicitis. On 07/28/2020, he underwent a laparoscopic appendectomy. He was then seen in April of 2023 for crampy, diffuse abdominal pain that would come and go. He did report nausea; however, no vomiting. He also denied any heartburn or reflux. He did report episodes of diarrhea, but denied any blood in his stool as well as no mucousy stools. He does have a history of bright red blood per rectum and did have a colonoscopy in December 2021 where he was found to have a cecal polyp that was consistent with a tubular adenoma. He then underwent another colonoscopy in March of 2022, and at that time was found to have a posterior anal fissure. He does report a remote family history of colon cancer with his paternal uncle having the disease, but denies any immediate family members. He also denies any history of any ulcerative colitis or Crohn's disease. He underwent a workup in the emergency department and was found to have a leukocytosis of 15,000 as well as a slightly elevated temperature of 101.5 degrees Fahrenheit. He did undergo a CT scan, which did show diffuse annular thickening of the colon extending from the cecum to the descending colon with associated submucosal enhancement and mild adjacent inflammatory changes with mesenteric hypervascularity that was most likely related to colitis. He was admitted and treated conservatively with IV fluids as well as antibiotics and bowel rest, and he did improve and was eventually discharged home. Since that time, he has been seen for followup in the office and reports that the pain has resolved and that he is having some softer stools and denies any blood in his stool as well as no dark tarry stools. He reports he is eating and drinking well with no issues. It was discussed with him that he would need a followup colonoscopy. MEDICAL HISTORY: Colon polyp anal fissure gastritis. SURGICAL HISTORY: [place] teeth extraction, laparoscopic appendectomy 07/28/2020. ALLERGIES: No known drug allergies. MEDICATIONS: None. SOCIAL HISTORY: Positive for tobacco smoke, 1 pack per day for 23 years. Social for alcohol. FAMILY HISTORY: Father, hypertension. Mother, myocardial infarction. VITAL SIGNS: Blood pressure is 121/80. Current weight is 168.1 pounds at 5 feet 7 inches. REVIEW OF SYSTEMS: A well-nourished male in no acute distress. He is not experiencing any shortness of breath or difficulty breathing. No chest pain, palpitations or diaphoresis. No nausea, vomiting or abdominal pain. No diarrhea or constipation. No red blood per rectum. No dark tarry stools. No fever or chills. No recent inadvertent weight loss. All other review of systems negative. PHYSICAL EXAM: CHEST: Clear. Good breath sounds bilaterally. HEART: Regular. No murmurs. EXTREMITIES: No lower extremity edema. Negative Homans sign. HEENT: No scleral icterus. No cervical lymphadenopathy. ABDOMEN: Soft, nontender, nondistended. SKIN: Warm, dry and pink. NEUROLOGIC: Awake, alert and oriented x3. ASSESSMENT AND PLAN: A 43-year-old male with colitis. At this time, we will proceed with a followup colonoscopy with biopsies as appropriate to rule out any potential ulcerative colitis versus Crohn's disease. The risks and benefits of the procedure as well as the procedure and home care instructions were explained to the patient. He verbalized understanding of instructions and agrees to proceed as planned. At this time, we will proceed with scheduling him for a colonoscopy. Job ID: [id number] DocumentID: [id number] Dictated Date: 06/01/2023 10:49:39 Scrapper Date: 06/01/2023 15:03:00 Dictated By: ANTONIO IRAHETA APRN
[~2023-06-10] VITALS: Ht 170.2 cm; Wt 76.3 kg
[~2023-06-10 10:21] MED LIST changes: +CIPR500T5 PO; +METR-145 PO; +PRD20T PO
[2023-06-10] MEDS ORDERED: LACTATED RINGERS 1,000 ML 1,000 ML IV STA (10:33)
[2023-06-10] MEDS ORDERED: LIDOCAINE JELLY 2% 6 ML SYRINGE MM PRN (10:45)
[2023-06-10 10:48] VITALS: BP 127/84
[2023-06-10] MEDS ORDERED: MIDAZOLAM INJ 2 MG/2 ML VIAL ONE (10:53)
[2023-06-10] MEDS ORDERED: LIDOCAINE JELLY 2% 6 ML SYRINGE ONE (10:56)
[2023-06-10] MEDS ORDERED: ONDANSETRON 4 MG ORAL DISSOLVE TABLET PO PRN ×2 (11:00)
[2023-06-10] MEDS ORDERED: ONDANSETRON INJECTION 4 MG/2 ML (SDV) IVP PRN ×2 (11:00)
--- NOTE | 2023-06-10 11:00 | Progress Note-Pre Operative ---
Pre-Operative Progress Note Date of Available H&P: Jun 10, 2023 Date H&P Reviewed: Jun 10, 2023 Time H&P Reviewed: 10:00 History & Physical: No changes noted Pre-Operative Diagnosis: hx colitis CHEN WISDOM MD Jun 10, 2023 11:00
[2023-06-10 11:35] VITALS: BP 118/80
[2023-06-10 11:40] VITALS: BP 118/76
[2023-06-10 11:45] VITALS: BP 121/73
--- NOTE | 2023-06-10 12:00 | Progress Note-Post Operative ---
Post-Operative Progess Note Surgeon (s)/Hadoop Developer (s) Surgeon CHEN WISDOM MD Hadoop Developer: none Pre-Operative Diagnosis hx colitis Post-Operative Diagnosis mild chronic stage 2 ext and int hemorrhoids, very mild colitis cecum and rectum Procedure & Operative Findings Date of Procedure 06/10/23 Procedure Performed/Findings colonoscopy with bx. Anesthesia Type mac Estimated Blood Loss Estimated blood loss (mL): minimal Specimens/Packing Specimens Removed cecum, rectum CHEN WISDOM MD Jun 10, 2023 12:00
--- NOTE | 2023-06-10 12:13 | Anesthesia-General Post-Op ---
MAC Patient Condition Mental Status/LOC: Same as Preop Cardiovascular: Satisfactory Nausea/Vomiting: Absent Respiratory: Satisfactory Pain: Controlled Complications: Absent Post Op Complications Complications None Follow Up Care/Instructions Patient Instructions None needed. Anesthesiology Discharge Order Discharge Order Patient is doing well, no complaints, stable vital signs, no apparent adverse anesthesia problems. No complications reported per nursing. MANISH GARDNER DO Jun 10, 2023 12:13
[2023-06-10 12:15] VITALS: BP 121/73
--- NOTE | 2023-06-10 17:05 | OPERATIVE REPORT ---
DATE OF SERVICE: 06/10/2023 PREOPERATIVE DIAGNOSES: Abdominal pain, colitis. POSTOPERATIVE DIAGNOSES: Mild chronic stage II external and internal hemorrhoids. Very mild inflammation of the rectum and cecum. No mucosal ulcerations or any significant inflammatory changes. No active bleed. PROCEDURE: Colonoscopy with biopsy. SURGEON: Chen Wisdom MD ANESTHESIA: Monitored anesthesia care. ESTIMATED BLOOD LOSS: Minimal. FINDINGS: Mild chronic stage II external and internal hemorrhoids. Very mild inflammation of the rectum and cecum. No mucosal ulcerations or any significant inflammatory changes. No active bleed. DISPOSITION: The patient tolerated the procedure well. INDICATIONS: The patient is a 43-year-old male known to us. We had seen him in 2019 for localized pain in the right lower abdominal quadrant and was found to have appendicitis and underwent an appendectomy. He was then seen in 04/2023 for diffuse, crampy abdominal pain on an intermittent basis with associated nausea; however, no vomiting. He also had reported diarrhea as well as blood-tinged mucousy stools. Upon further questioning, he had reported that he had similar symptoms back in 12/2021 and did have a colonoscopy and was found to have a cecal polyp, which was consistent with a benign tubular adenoma. He then had another followup colonoscopy in 03/2022 and found to have a posterior anal fissure. He was admitted for crampy abdominal pain and a CT scan was performed, which did show a significant colitis with a diffuse annular thickening of the colon starting at the cecum and ending at approximately the descending colon. He was treated conservatively and improved and was discharged home. Since that time, he states that he has been doing well, does not have any issues with diarrhea as well as no abdominal pain. DESCRIPTION OF PROCEDURE: The patient was brought to the endoscopy suite and laid in the left lateral decubitus position. After adequate IV pain and sedative medications and monitored anesthesia care, a digital rectal examination was performed. Mild chronic stage II, external and internal hemorrhoids were identified, not actively edematous nor inflamed and no bleeding. There were no perianal chronic or acute inflammatory changes as well as no fistulous tracts identified. Normal sphincter tone was felt and there were no palpable masses. Prostate gland was palpable and appeared normal. The endoscope was then intubated into the anus, rectum gently insufflated. The endoscope was then advanced through the valves of Leo of the rectum with a very mild amount of inflammation of the rectum, which may have just been due to the colonic preparation. A biopsy was taken of the rectum with forceps with visualization of good hemostasis. The endoscope was then advanced through the remainder of the descending, transverse and ascending colon to the cecum and at the level of cecum, there may have been some mild colitis as well, very mild and a biopsy was taken to the cecum with forceps with visualization of good hemostasis. There were no polyps, neoplasms as well as no significant mucosal inflammatory changes or ulcerations. The endoscope was then slowly withdrawn while taking a second look and suctioning of residual air with no additional findings. The patient tolerated the procedure well. We feel that he may have some level of inflammatory bowel disease and one of the known risk factors for exacerbation of his inflammatory bowel disease is smoking and we will recommend smoking cessation. If he does have recurrent episodes of crampy abdominal pain, diarrhea, we will just have him follow up in the office and then proceed with the first line therapy for inflammatory bowel disease, which would encompass a 5-aminosalicylic acid derivative on a t.i.d. basis for 6 weeks. We would also likely refer him to Gastroenterology for further medical management. Job ID: [id number] DocumentID: [id number] Dictated Date: 06/10/2023 11:46:01 Screw Machine Set Up Operator Tool Date: 06/10/2023 17:03:00 Dictated By: CHEN WISDOM MD
== END 2023-06-10 12:15 | disposition home or self-care (01) ==
LOC: ENDO 10:21
PROVIDERS: ATTEND Surgery
DX: K52.9 Noninfective gastroenteritis and colitis, unspecified (principal); K62.89 Other specified diseases of anus and rectum; K64.1 Second degree hemorrhoids; K64.4 Residual hemorrhoidal skin tags; F17.210 Nicotine dependence, cigarettes, uncomplicated; Z90.89 Acquired absence of other organs

== ENCOUNTER → 2023-07-16 | Outpatient (CLI) | payer BC ==
[2023-07-16 17:44] LABS: BASOPHILS # (AUTO) 0.1 10^3/uL (0.0-0.1); BASOPHILS % (AUTO) 1 % (0-10); EOSINOPHILS # (AUTO) 1.1 10^3/uL (0.0-0.3); EOSINOPHILS % (AUTO) 9 % (0-10); HEMATOCRIT 47 % (40-54); HEMOGLOBIN 15.9 g/dL (13.3-17.7); LYMPHOCYTES # (AUTO) 3.6 10^3/uL (1.0-4.0); LYMPHOCYTES % (AUTO) 30 % (12-44); MEAN CORPUSCULAR HEMOGLOBIN 30 pg (25-34); MEAN CORPUSCULAR HGB CONC 34 g/dL (32-36); MEAN CORPUSCULAR VOLUME 89 fL (80-99); MEAN PLATELET VOLUME 11.7 fL (9.0-12.2); MONOCYTES # (AUTO) 0.9 10^3/uL (0.0-1.0); MONOCYTES % (AUTO) 7 % (0-12); NEUTROPHILS # (AUTO) 6.2 10^3/uL (1.8-7.8); NEUTROPHILS % (AUTO) 52 % (42-75); PLATELET COUNT 276 10^3/uL (130-400); WHITE BLOOD COUNT 11.9 10^3/uL (4.3-11.0)
--- NOTE | 2023-07-16 17:58 | Diagnostic Imaging Report ---
PROCEDURE: CT abdomen and pelvis without contrast. TECHNIQUE: Multiple contiguous axial images were obtained through the abdomen and pelvis without the use of intravenous contrast. Auto Exposure Controls were utilized during the CT exam to meet ALARA standards for radiation dose reduction. INDICATION: Blood in the stool. Left lower quadrant abdominal pain. COMPARISON: 04/26/2023. FINDINGS: Included portions of the lung bases are clear. CT ABDOMEN: Appendix appears to be surgically absent. Small bowel loops are nondilated. Kidneys, adrenal glands, spleen, pancreas, and liver have an unremarkable noncontrast CT appearance. There is no loculated fluid collection, free fluid, or free air within the abdomen. No abnormal mesenteric or retroperitoneal adenopathy is seen. Osseous structures show no acute abnormalities. CT PELVIS: Urinary bladder is unopacified. No calculi are seen within the urinary bladder. There is no loculated fluid collection, free fluid, or free air. No abnormal lymph nodes are identified. Osseous structures show no acute abnormalities. IMPRESSION: 1. Unremarkable noncontrast CT of the abdomen and pelvis. Dictated by: Dictated on workstation # [id number]
[2023-07-16 18:03] LABS: ALBUMIN 4.4 GM/DL (3.2-4.5); POTASSIUM 3.7 MMOL/L (3.6-5.0)
[2023-07-16 18:04] LABS: CALCIUM 9.4 MG/DL (8.5-10.1)
[2023-07-16 18:06] LABS: TOTAL PROTEIN 7.8 GM/DL (6.4-8.2)
[2023-07-16 18:07] LABS: BILIRUBIN,TOTAL 0.3 MG/DL (0.1-1.0)
[2023-07-16 18:09] LABS: CREATININE SERUM 0.83 MG/DL (0.60-1.30)
== END ==
LOC: LAB 17:13
PROVIDERS: ATTEND Registered Nurse Critical Care Medicine
DX: Z00.01 Encounter for general adult medical examination with abnormal findings (principal); R14.0 Abdominal distension (gaseous); R10.32 Left lower quadrant pain; K59.09 Other constipation; K59.1 Functional diarrhea; K64.8 Other hemorrhoids; H66.91 Otitis media, unspecified, right ear; J30.89 Other allergic rhinitis; H66.003 Acute suppurative otitis media without spontaneous rupture of ear drum, bilateral; L84 Corns and callosities; Z76.0 Encounter for issue of repeat prescription
CPT/HCPCS: 36415; 74176; 80053; 82150; 83690; 85025; 86141; 86677